=== PATIENT | female | born 1945 | race Two or more races ===

== ENCOUNTER 2024-06-27 11:25 | Outpatient (REF) | payer MEDICARE, OTHER, SELFPAY ==
--- OUTSIDE RECORDS SUMMARY | 2024-06-27 14:41 | XMS_ITS | Clinical Summary ---
Author Organization Patient Business Ser [facility] Address [address] [place] [address] Care Team Providers Care Pediatric Critical Care Nurse Name Role Phone Theodore Newsome MD Primary Care Provider [phone] Allergies Active Allergy Reactions Criticality Noted Date [...] Active Problems Problem Noted Date Diagnosed Date [facility] 05/09/2024 Stage 3a chronic kidney disease [...] physical therapy when she was down in [place] and currently is in physical therapy, feels [...] Patient had MRI lumbar spine 11/07/2021 at [facility] that showed mild multilevel degenerative changes, including [...] occur when she has her chest discomfort. monitoring analyst in the past did not reveal any concerning findings. Her baseline EKG is showing sinus bradycardia with a heart rate of 53 bpm. She states that her palpitations are worse this year when compared to previous. We will update a 48-hour cardiac rn to assess for any significant cardiac arrhythmias. No changes to her medical therapies today. SOB (shortness of breath) 10/10/2021 Overview (12/23/2023): Last Assessment & Plan: Patient continues to report exertional shortness of breath. She does have COPD and recent CAT scan showing emphysema. She will be following with her firer watertender later this week. Superior mesenteric artery stenosis [...] Visit Internal [facility] - [facility] [address] [place] [address] Theodore Newsome MD Primary hypertension (Primary Dx); Stage 3a chronic kidney disease (CMS/HCC); Bilateral leg edema 05/31/2024 Telephone Orthopedic Surgery - [place] [address] [place] [phone] Deepa Clifton NP 05/24/2024 Telephone Pediatrics - [facility] [address] [place] [address] Theodore Newsome MD Med Refill 05/23/2024 1:30 PM EST Office Visit [facility] - [address] [place] [phone] Rohith Raya MD PVC (premature ventricular contraction) (Primary Dx); Primary hypertension; Other chest pain 05/22/2024 Telephone Orthopedic Surgery - [place] [address] [place] [phone] Deepa Clifton NP 05/16/2024 1:41 PM EST - 05/16/2024 11:59 PM EST Hospital Encounter [facility] MRI [address] [place] [phone] Unspecified internal derangement of right knee; Pain and swelling of right knee; Primary osteoarthritis of right knee Discharge Disposition: Home or Self Care 05/10/2024 3:30 PM EST Consult Orthopedic Surgery - [place] [address] [facility] [address] [place] [phone] Deepa Clifton NP Pain and swelling of right knee (Primary Dx); Unspecified internal derangement of right knee; Primary osteoarthritis of right knee; Subchondral insufficiency fracture of condyle of right femur, initial encounter ([facility]) 05/08/2024 Telephone Pediatrics - [facility] [address] [place] [address] Theodore Newsome MD Medication Reaction 05/03/2024 3:30 PM EST Office Visit Unit Operator - [facility] [address] [place] [address] Theodore Newsome MD Follow-up exam (Primary Dx); Precordial pain; Bilateral lower extremity edema 05/02/2024 10:45 AM EST Office Visit Orthopedic Surgery - [place] [address] [place] [phone] Thomas Mark DPM Localized edema (Primary [...] SUBTOTAL THYROIDECTOMY OTHER SURGICAL HISTORY 1979 PROCEDURE: NM TOTAL ABDOMINAL HYSTERECT W/WO RMVL TUBE OVARY; [...] chronic, sta ge III (GFR 30-59 ml/min) ([facility]) DX:Kidney disease, chroni c, stage III (GFR 30-59 ml/min) ([facility]); COMMENT: Patient states is likely related to her chronic naproxen use, no longer takes NSAIDs Osteoporosis DX:Osteoporosis Multiple lung nodules 05/17/2020 DX:Multipl e lung nodules History of pulmonary embolus (PE) 05/08/2021 DX:History of pulmonary embolus (PE); COMMENT: In [place], took Elliquis for 3 months. Chronic gastritis [...] 2:30 PM EDT Office Visit Orthopedic Surgery [place] [address] [phone] Deepa Clifton NP [address] [address] 07/31/2024 10:45 AM EDT Office Visit Orthopedic [address] [address] Thomas Mark DPM [address] [address] 08/02/2024 1:00 PM EDT Office Visit [facility] [address] [place] [address] Theodore Newsome MD [address] [place] [address] 08/23/2024 1:30 PM EDT Ancillary Procedure [facility] - [facility] [address] [phone] 09/04/2024 8:30 AM EDT Ancillary Procedure [facility] - [facility] [address] [place] [address] 10/19/2024 10:00 AM EDT Office Visit Vascular Surgery - [place] [address] [place] [phone] Paulette Santos PA [address] [place] [address] 12/08/2024 3:30 PM EDT Office Visit Internal Medicine - [facility] [address] [place] [address] Theodore Newsome MD [address] [place] [address] 01/24/2025 1:10 PM EDT Office Visit [facility] - [facility] [address] [facility] 102 [place] [address] Falguni Villarreal NP 300 [facility] 154 [place] [phone] Health Maintenance Due Date Last Done Comments [...] GEMUSE QTc 413 ms GEMUSE P Wave [place] 74 degrees GEMUSE R [place] 65 degrees GEMUSE T [place] 82 degrees GEMUSE ECG Interpretation Sinus bradycardia Right atrial enlargement Borderline ECG When compared with ECG of 24-JUN-2023 14:20, No significant change was found Confirmed by MD Elver, Rohith ([id number]) on 05/23/2024 2:29:27 PM GEMUSE [...] edema suggesting a nondisplaced subchondral fracture. A [employer] message has been communicated to the office of DEEPA CLIFTON via the [employer] System on 05/18/2024 1:40 PM, Message ID [id number]. -------- FINAL REPORT -------- Dictated By: Zack Churchill Dictated Date: 05/18/2024 13:31 ET Assigned Physician: Zack Churchill Reviewed and Electronically Signed By: Zack Churchill Signed Date: 05/18/2024 13:41 ET Workstation ID: [id number] Transcribed By: Self Edit Transcribed Date: 05/18/2024 [...] marrow edemasuggesting a nondisplaced subchondral fracture. A [employer] message has been communicated to the office of DEEPA Alfredo the [employer] System on 05/18/2024 1:40 PM,Message ID [id number]. -------- FINAL REPORT -------- Dictated By: Zack Churchill Dictated Date: 05/18/2024 13:31 ET Assigned Physician: Zack Churchill Reviewed and Electronically Signed By: Zack Churchill Signed Date: 05/18/2024 13:41 ET Workstation ID: [id number] Transcribed By: Self Edit Transcribed Date: 05/18/2024 13:31 ET us Deepa Clifton OPERATIONS ADMINISTRATIVE ASSISTANT IMG MRI PROCEDURES Brandi l Result * [...] AM EST Performed at: ??01 - [facility] [address] ??[id number] Ict Trainer: Debora Obrien MD, Phone: ??[phone] us Maria E Jeffries OPERATIONS ADMINISTRATIVE ASSISTANT LAB BLOOD ORDERABLES Final R esult [facility] 1 * (ABNORMAL) Comprehensive metabolic panel (01/31/2024 11:26 AM EST) Sodium 141 133 - 145 mmol/L LAB CHEMISTRY METHOD 01/31/2024 6:56 PM [facility] Potassium 4.9 3.5 - 5.5 mmol/L LAB CHEMISTRY METHOD 01/31/2024 6:56 PM [facility] Chloride 107 96 - 110 mmol/L LAB CHEMISTRY METHOD 01/31/2024 6:56 PM [facility] CO2 27 21 - 32 mmol/L LAB CHEMISTRY METHOD 01/31/2024 6:56 PM [facility] Anion Gap 7 3 - 11 LAB CHEMISTRY METHOD 01/31/2024 6:56 PM [facility] Glucose 102(H) 70 - 100 mg/dL LAB CHEMISTRY METHOD 01/31/2024 6:56 PM [facility] BUN 25 5 - 25 mg/dL LAB CHEMISTRY METHOD 01/31/2024 6:56 PM [facility] Creatinine 1.18(H) 0.50 - 1.10 mg/dL LAB CHEMISTRY METHOD 01/31/2024 6:56 PM [facility] eGFR 48(L) >=60 mL/min/1. 73m2 LAB CHEMISTRY METHOD 01/31/2024 6:56 PM [facility] Comment:Calculation based on the??Chronic Kidney Disease Epidemiology Collaboration (CKD-EPI) equation refit??without adjustment for race. BUN/Creatinine Ratio 21.2 LAB CHEMISTRY METHOD 01/31/2024 6:56 PM [facility] Calcium 10.0 8.5 - 10.5 mg/dL LAB CHEMISTRY METHOD 01/31/2024 6:56 PM [facility] AST (SGOT) 25 10 - 42 unit/L LAB CHEMISTRY METHOD 01/31/2024 6:56 PM [facility] ALT (SGPT) 29 10 - 60 unit/L LAB CHEMISTRY METHOD 01/31/2024 6:56 PM [facility] Alkaline Phosphatase 106 42 - 121 unit/L LAB CHEMISTRY METHOD 01/31/2024 6:56 PM [facility] Total Protein 7.4 6.0 - 8.0 g/dL LAB CHEMISTRY METHOD 01/31/2024 6:56 PM [facility] Albumin 3.8 3.2 - 5.0 g/dL LAB CHEMISTRY METHOD 01/31/2024 6:56 PM [facility] Total Bilirubin 0.3 0.0 - 1.4 mg/dL LAB CHEMISTRY METHOD 01/31/2024 6:56 PM [facility] Blood Venous blood specimen / Unknown Venipuncture / Unknown 01/31/2024 11:26 AM EST 01/31/2024 11:26 AM EST Thomas Mark DP LAB BLOOD ORDERABLES Final Result [facility] [address] [place] [address], * Falls Risk Assessment (10/27/2023) Falls Risk Assessment Abstracted Historical Provider MD HEALTH MAINTENANCE Final Result * Depression Screening (10/27/2023) Depression Screening Abstracted us Historical Provider HEALTH MAINTENANCE Final Result from Last 3 Months or Most Recently Relevant to Health Maintenance Insurance MEDICARE [facility] Advance Directives Documents on File Type Date Recorded Patient Liquor Grinding Mill Operator Expl anation Health Care Decision (hx) 10/01/2023 HE ALTH CARE PROXY Health Care Decision (hx) 10/01/2023 HE ALTH CARE PROXY Health Care Decision (hx) 09/29/2023 HE ALTH CARE PROXY Health Care Decision (hx) 09/29/2023 HE ALTH CARE PROXY Care Teams Pediatric Critical Care Nurse Relationship Specialty Start Date End Date Theodore Newsome MD [address] [facility] [place] [address] PCP - General Internal Medicine 02/08/24
--- OUTSIDE RECORDS SUMMARY | 2024-06-27 14:41 | XMS_ITS | Encounter Summary ---
Author Organization [facility] Address [address] [place] [address] Care Team Providers Care Gas Engine Repairer Name Role Phone Theodore Newsome MD Primary Care Provider [phone] Encounter Details Date Type Department Care Team (Late st Contact Info) Description 05/31/2024 Telephone Orthopedic Surgery - [place] [address] [place] [phone] Deepa Lakhani NP [address] [address] Social History Tobacco Use Types Packs/Day Years [...] 2:30 PM EDT Office Visit Orthopedic Surgery [place] [address] [address] Deepa Lakhani NP [address] [address] 07/31/2024 10:45 AM EDT Office Visit Orthopedic Surgery [place] [address] [address] Thomas Mark DPM [address] [address] 08/02/2024 1:00 PM EDT Office Visit Internal Medicine - [address] [address] Theodore Newsome MD 305 [place] [address] 08/23/2024 1:30 PM EDT Ancillary Procedure [facility] [address] [address] 09/04/2024 8:30 AM EDT Ancillary Procedure [facility]iology [facility] [address] [address] 10/19/2024 10:00 AM EDT Office Visit Vascular Surgery - [place] [address] [place] [address] Paulette Santos PA 300 [facility] 210 [place] [address] 12/08/2024 3:30 PM EDT Office Visit Internal Medicine - [facility] 305 [place] [address] Theodore Newsome MD 305 [place] [address] 01/24/2025 1:10 PM EDT Office Visit [facility] - [facility] 102 300 [facility] 102 [place] [phone] Falguni Villarreal NP 300 [facility] 154 [place] [phone] documented as of this encounter Visit Diagnoses Not on filedocumented in this encounter Additional Health Concerns Assessment Noted Time PHQ-9 Depression Total Score: 11 024 11:00 AM EST documented as of this encounter Care Teams Gas Engine Repairer Relationship Specialty Start Date End Date Theodore Newsome MD 305 [place] [address] PCP - General Internal Medicine 02/08/24 documented as of this encounter
[2024-06-27 18:46] LABS: Creatinine Urine 260.51 mg/dL; Protein/Creatinine Ratio, Ur 0.09 (<0.2); Total Protein Urine Random 23 mg/dL (<12)
[2024-06-27 19:41] LABS: Parathyroid Hormone Intact 63.1 pg/mL (8.7-77.1)
[2024-06-27 19:56] LABS: Anion Gap 14 (12-20); Blood Urea Nitrogen 21 mg/dL (9-16); Calcium 9.5 mg/dL (8.4-10.2); Carbon Dioxide 25 mmol/L (22-29); Chloride 107 mmol/L (96-108); Estimated Glomerular Filt Rate 52; Phosphorus 3.6 mg/dL (2.7-4.5); Potassium 4.8 mmol/L (3.3-5.1); Sodium 141 mmol/L (135-145)
[2024-06-30 16:44] LABS: IgA 424 mg/dL (70-320); IgG 1035 mg/dL (600-1540); IgM 84 mg/dL (50-300)
== END 2024-06-27 11:26 | disposition home or self-care (01) ==
LOC: HO.HKASLDS 11:25
PROVIDERS: PCP Internal Medicine Hematology & Oncology; Visit Provider Internal Medicine Nephrology
DX: I12.9 Hypertensive chronic kidney disease with stage 1 through stage 4 chronic kidney disease, or unspecified chronic kidney disease (principal); N18.31 Chronic kidney disease, stage 3a
CPT/HCPCS: 36415; 80051; 82306; 82310; 82565; 82570; 82784; 83970; 84100; 84156; 84520; 86334; 99202

== ENCOUNTER 2024-06-27 11:25 | Outpatient (AMB) | payer MEDICARE, OTHER, SELFPAY ==
--- NOTE | 2024-06-27 11:44 | HO.NEPHOV_ITS ---
Vital Signs 06/27/24 11:49 Height 5 ft 1 in Weight 161 lb 8 oz BMI 30.5 BP 128/70 Blood Pressure Location Lt brachial Position Sitting Pulse 47 L Pulse Source Pulse Oximeter Pulse Oximetry (%) 97 Oxygen Delivery Method Room Air Intake Visit Reasons: [facility] Occupational Therapist Assistant Required: No Accompanied by: Self / Same As Patient Allergies cephalexin Allergy (Verified 06/27/24 11:48) Unknown fluorouracil Allergy (Verified 06/27/24 11:48) Unknown lisinopril Allergy (Verified 06/27/24 11:48) Unknown moxifloxacin Allergy (Verified 06/27/24 11:48) Unknown shellfish derived Allergy (Verified 06/27/24 11:48) Unknown Sulfa (Sulfonamide Antibiotics) Allergy (Verified 06/27/24 11:48) Unknown sulfacetamide Allergy (Verified 06/27/24 11:48) Unknown HPI Comments Details: I had the pleasure of seeing Martell in consultation and transfer of her renal care to me. 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 She has a longstanding hypertension and had been on lisinopril in the past which has been discontinued when she had some dizziness while taking the medication. She is currently on amlodipine which is keeping her blood pressure at goal. She has history of renal calculi. She is also taking hydrochlorothiazide for edema which is helping to keep her blood pressure at goal. She has not had any renal calculi ever since she has been on hydrochlorothiazide. She has history of A1c going up to 7 which had improved to upper 6. She feels tired. She denies chest pain, shortness of breath, nausea, vomiting, diarrhea, paroxysmal nocturnal dyspnea, orthopnea, dysuria, microscopic hematuria, sensorineural deafness. She has history of aortic aneurysm and is going to see Dr. Doe in [facility]. She does not take nonsteroidal anti-inflammatories. [facility] Medical History (Updated 06/27/24 @ 22:35 by Karl Blanco MD) Hypercholesterolemia Hypertension Hypothyroidism Other secondary pulmonary hypertension Surgical History (Updated 06/27/24 @ 11:47 by Mari Dai MA) History of cataract surgery H/O partial thyroidectomy Hx of cholecystectomy H/O: hysterectomy Family History Mother Diabetes Hypertension Heart disease Social History (Updated 06/27/24 @ 11:45 by Mari Dai MA) Alcohol intake: never Patient Tobacco Use Status: Never used Tobacco Review of Systems Const All systems reviewed & are unremarkable except as noted in HPI and below Physical Exam Vital Signs: Last Vital Signs Pulse 47 L 06/27/24 11:49 BP 128/70 06/27/24 11:49 Pulse Ox 97 06/27/24 11:49 Oxygen Delivery Method Room Air 06/27/24 11:49 BMI result Body Mass Index 30.5 Const General: comfortable and no acute distress Orientation/consciousness: patient oriented x3 HEENT Head: Yes normocephalic Mouth: Normal oral and palatal mucosa present Eyes EOM: EOMs intact bilaterally Neck Neck: Yes supple Resp Auscultation: clear to auscultation bilaterally Cardio Jugular venous distension: no JVD Rate: regular rate GI Palpation (GI): Soft to palpation Auscultation: normal bowel sounds General: Yes no CVA tenderness Back/Spine/Pelvis Back: no CVA tenderness Skin General skin exam: no rashes or lesions noted Neuro General: patient oriented x3 and moves all extremities Extrem General: Yes no pedal edema Results Reviewed Nephrology Results: Sodium 141 mmol/L (135-145) 06/27/24 Potassium 4.8 mmol/L (3.3-5.1) 06/27/24 Chloride 107 mmol/L (96-108) 06/27/24 Carbon Dioxide 25 mmol/L (22-29) 06/27/24 BUN 21 mg/dL (9-16) H 06/27/24 Creatinine 1.03 mg/dL (0.5-1.4) 06/27/24 Calcium 9.5 mg/dL (8.4-10.2) 06/27/24 Phosphorus 3.6 mg/dL (2.7-4.5) 06/27/24 PTH Intact 63.1 pg/mL (8.7-77.1) 06/27/24 Urine Creatinine 260.51 mg/dL 06/27/24 Protein/Creatinin Ratio 0.09 (<0.2) 06/27/24 Assessment & Plan Assessment & Plan (1) Hypertension: Code(s): I10 - Essential (primary) hypertension Category: Medical Qualifiers: Hypertension type: unspecified Qualified Code(s): I10 - Essential (primary) hypertension (2) CKD stage 3a, GFR 45-59 ml/min: Code(s): N18.31 - Chronic kidney disease, stage 3a Category: Medical Plan 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 She has history of aortic aneurysm. She has had issues with CANDIDO inhibitor. She has no renal calculi ever since she has been on hydrochlorothiazide. She has edema from amlodipine. Her renal functions are currently stable. I have ordered blood work, urine studies as well as imaging studies. I plan to initiate her on low- dose CANDIDO inhibitor with time and cut back on her calcium channel anni. She should maintain good hydration and avoid nonsteroidal anti-inflammatories. All these have been explained in detail. Answered all questions. Follow-up appointment given Orders: Orders Calcium Today I10 - Essential (primary) hypertension, N18.31 - Chronic kidney disease, stage 3a Creatinine Today I10 - Essential (primary) hypertension, N18.31 - Chronic kidney disease, stage 3a Vitamin D 25-OH Total Today I10 - Essential (primary) hypertension, N18.31 - Chronic kidney disease, stage 3a Phosphorus Today I10 - Essential (primary) hypertension, N18.31 - Chronic kidney disease, stage 3a Protein Creatinine Ratio, Ur Today I10 - Essential (primary) hypertension, N18.31 - Chronic kidney disease, stage 3a Immunofixation Pnl, Serum Today I10 - Essential (primary) hypertension, N18.31 - Chronic kidney disease, stage 3a US renal BI 3 Weeks I10 - Essential (primary) hypertension, N18.31 - Chronic kidney disease, stage 3a US renal doppler 3 Weeks I10 - Essential (primary) hypertension, N18.31 - Chronic kidney disease, stage 3a Electrolytes Today I10 - Essential (primary) hypertension, N18.31 - Chronic kidney disease, stage 3a Blood Urea Nitrogen Today I10 - Essential (primary) hypertension, N18.31 - Chronic kidney disease, stage 3a Parathyroid Hormone Intact Today I10 - Essential (primary) hypertension, N18.31 - Chronic kidney disease, stage 3a Coding Level of Care Code New Pt Level 4 (32001) Diagnoses Hypertension, unspecified type I10 Hypertension type: unspecified CKD stage 3a, GFR 45-59 ml/min N18.31
[2024-06-27 11:49] VITALS: BP 128/70; PULSE 47; O2SAT 97; BMI 30.5
--- OUTSIDE RECORDS SUMMARY | 2024-06-27 13:53 | XMS_ITS | Encounter Summary ---
Author Organization [facility] Address [address] [place] [address] Care Team Providers Care Clinical Safety Manager Name Role Phone Theodore Newsome MD Primary Care Provider [phone] Encounter Details Date Type Department Care Team (Late st Contact Info) Description 05/31/2024 Telephone Orthopedic Surgery - [place] [address] [place] [id number] Deepa Lakhani NP [address] [address] Social History Tobacco Use Types Packs/Day Years Used Date Smoking Tobacco: Never Smokeless Tobacco: Never Alcohol Use Standard Drinks/Week Comments Never 0 (1 standard drink = 0.6 oz pur e alcohol) Comments No Sex and Gender Information Value Date Recorded Sex Assigned at Not on file Legal Sex Female 11:42 AM EST Gender Identity Female 02/09/2022 1:05 PM EST Sexual Orientation Straight 02/09/2022 1: 05 PM EST documented as of this encounter Progress Notes * Vero Grubbs MA - 05/31/2024 10:35 AM EST The additional information has been faxed to jonah * Laura Ayers - 05/31/2024 10:22 AM EST Patient is calling back in regarding previous message. She states she's in pain and needs to get the walker karen. Please advise. Thanks documented in this encounter Plan of Treatment Upcoming Encounters Date Type Department Care Team (Late st Contact Info) Description 06/29/2024 2:30 PM EDT Office Visit Orthopedic Surgery [place] [address] [phone] Deepa Lakhani NP [address] [address] 07/31/2024 10:45 AM EDT Office Visit Orthopedic Surgery [place] [address] [phone] Thomas Mark DPM [address] [address] 08/02/2024 1:00 PM EDT Office Visit Internal Medicine - [address] [phone] Theodore Newsome MD [address] [place] [address] 08/23/2024 1:30 PM EDT Ancillary Procedure [facility] Cardiology [facility] [address] [address] 09/04/2024 8:30 AM EDT Ancillary Procedure [facility] Cardiology [facility] [address] [address] 10/19/2024 10:00 AM EDT Office Visit Vascular Surgery - [place] [address] [place] [address] Paulette Santos PA 300 [facility] [address] [place] [address] 12/08/2024 3:30 PM EDT Office Visit Internal Medicine - [facility] [address] [place] [address] Theodore Newsome MD [address] [place] [address] 01/24/2025 1:10 PM EDT Office Visit [facility] - [facility] 102 300 [facility] 102 [place] [phone] Falguni Villarreal NP 300 [facility] 154 [place] [phone] documented as of this encounter Visit Diagnoses Not on filedocumented in this encounter Additional Health Concerns Assessment Noted Time PHQ-9 Depression Total Score: 11 024 11:00 AM EST documented as of this encounter Care Teams Clinical Safety Manager Relationship Specialty Start Date End Date Theodore Newsome MD [address] [place] [address] PCP - General Internal Medicine 02/08/24 documented as of this encounter
--- OUTSIDE RECORDS SUMMARY | 2024-06-27 13:53 | XMS_ITS ---
Author Name [facility] Organization Unknown History of Medication Use Medication Directions Dispensed Refills Start Date End Date Stat us blood sugar diagnostic (FreeStyle Lite Strips) test strip Use to check BS daily 05/28/2023 active escitalopram (LEXAPRO) 10 mg tablet Take 1 tablet (10 mg total) by mouth 1 (one) time each day. 03/02/2024 active budesonide-formoteroL (SYMBICORT) 160-4.5 mcg/actuation inhaler Inhale 2 puffs by mouth. active tqotqdohoh-wmtnrxlc-gfgtf terol (Breztri Aerosphere) 160-9-4.8 mcg/actuation HFA aerosol inhaler inhaler Inhale 2 Puffs into the lungs 2 times daily. 10/22/2023 active hydroCHLOROthiazide 12.5 mg tablet Take 1 tablet (12.5 mg total) by mouth 1 (one) time each day. 05/03/2024 active hydrocortisone 1 % topical cream Apply twice daily to rectum as needed. 06/22/2023 active montelukast (SINGULAIR) 10 mg tablet Take 1 tablet (10 mg total) by mouth at bedtime. 09/19/2020 active diclofenac (VOLTAREN) 1 % topical gel Apply 1 g topically 3 (three) times a day. 10/01/2023 active erythromycin 5 mg/gram (0.5 %) ophthalmic ointment Apply 1cm ribbon in right eye up to 6x/ day x 10 days 12/13/2023 active aspirin 81 mg EC tablet Take 1 tablet (81 mg total) by mouth 1 (one) time each day. 08/04/2022 active levothyroxine (SYNTHROID, LEVOTHROID) 75 mcg tablet TAKE 1 TABLET BY MOUTH EVERY DAY 02/18/2024 active estradioL (ESTRACE) 0.01 % (0.1 mg/gram) vaginal cream Insert 1 g into the vagina 2 (two) times a week. 02/17/2023 active nitroglycerin (NITROSTAT) 0.[address] 1 tablet (0.4 mg total) under the tongue. every 5 minutes as needed for Chest pain. 05/03/2023 active albuterol HFA (PROAIR HFA ; PROVENTIL HFA ; VENTOLIN HFA) 90 mcg/actuation inhaler Inhale 2 Puffs into the lungs 4 times daily as needed for Wheezing or Shortness of Breath. 10/22/2023 active pantoprazole (PROTONIX) 40 mg EC tablet Take 1 tablet (40 mg total) by mouth 2 (two) times a day. 10/22/2023 active amLODIPine (NORVASC) 5 mg tablet Take 1 tablet (5 mg total) by mouth. active Problems Problem Status Onset Date Problem Type Date of Resolution Source Other pulmonary embolism without acute cor pulmonale active 2020-06-25 ProblemAct [facility] Aortic calcification active 2021-05-08 ProblemAct [facility] Irritable bowel syndrome active 2018-10-18 ProblemAct [facility] Superior mesenteric artery stenosis active 2021-10-10 ProblemAct [facility] Colon polyp active 2021-05-08 ProblemAct [facility] Palpitations active 2021-10-15 ProblemAct [facility] Lumbar spondylosis active 2021-11-26 ProblemAct [facility] Stage 3a chronic kidney disease active 2023-12-23 ProblemAct [facility] 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 ProblemAct [facility] Arthritis active 2018-10-18 ProblemAct [facility] Unspecified chronic gastritis with bleeding active 2018-03-08 ProblemAct [facility] Suprapubic pain active 2017-01-[address] [facility] Moderate persistent asthma, uncomplicated active 2020-05-17 ProblemAct [facility] Difficulty walking active 2020-07-18 ProblemAct [facility] Vaginal foreign body active 2017-07-02 ProblemAct [facility] Snoring active 2020-05-17 ProblemAct [facility] Hypertension active 2018-10-18 ProblemAct [facility] 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 active 2016-09-08 ProblemAct [facility] Prediabetes active 2021-05-08 ProblemAct [facility] 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 active 2020-07-18 ProblemAct [facility] Lumbago active 2024-05-09 ProblemAct [facility] Hypothyroidism active 2018-10-18 ProblemAct [facility] SOB (shortness of breath) active 2021-10-10 ProblemAct [facility] Abdominal pain active 2018-10-18 ProblemAct [facility] Depression active 2021-05-08 ProblemAct [facility] Thyroid nodule active 2018-02-21 ProblemAct [facility] Dysthymic disorder active 1979-03-29 ProblemAct [facility] Epigastric pain active 2016-11-[address] [facility] GERD (gastroesophageal reflux disease) active 2021-05-08 ProblemAct [facility] Other secondary pulmonary hypertension active 2020-06-25 ProblemAct [facility] Obesity active 1996-03-29 ProblemAct [facility] Multiple lung nodules active 2020-05-17 ProblemAct [facility] CKD (chronic kidney disease) active 2021-05-08 ProblemAct [facility] Ptosis of right eyebrow active 2019-02-16 ProblemAct [facility] Chronic fatigue active 2020-06-[address] [facility] Disease due to severe acute respiratory syndrome coronavirus 2 (SARS-CoV-2) active 2023-12-02 ProblemAct C [facility]THS[facility] Headache active 2016-11-11 ProblemAct [facility] Right sided sciatica active 2017-06-05 ProblemAct [facility] Hyperlipidemia active 2021-10-15 ProblemAct [facility] Pure hypercholesterolemia active 2018-10-18 ProblemAct [facility] COPD (chronic obstructive pulmonary disease) active 2021-05-08 ProblemAct [facility] N Restrictive lung disease active 2020-08-22 ProblemAct [facility] Multiple premature ventricular complexes active 2023-12-07 ProblemAct [facility] Chest pain active 2005-04-11 ProblemAct [facility] Immunizations Vaccine Date Source Lot Number Status Pneumococcal, Unspecified 10/23/2022 [facility] [id number] completed Pneumococcal polysaccharide 23 valent (Pneumovax 23) 2yo and older 03/08/2014 [facility] [id number] com pleted Influenza Quadravalent, 0.5m l (Fluzone High-dose) 65yo and older 02/13/2022 [facility]_S[facility] comple levar Pneumococcal polysaccharide 23 valent (Pneumovax 23) 2yo and older 04/19/2012 [facility]_SUHASFRAN com pleted Influenza trivalent, with pr eservative (Fluzone; Afluria) 6mo and older 05/12/2016 [facility]_S[facility]AN [id number] completed Tdap Tetanus diptheria acell ular pertussis (Boostrix; Adacel) 7yo and older 08/27/2023 [facility] [id number] completed Influenza trivalent, with pr eservative (Fluzone; Afluria) 6mo and older 12/21/2017 [facility]_SFRNEGRA [id number] completed Pneumococcal conjugate 20 va lent (Prevnar 20, PCV 20) 2mo and older 10/23/2022 [facility] [id number] comple levar Influenza, Unspecified 02/03/2000 [facility] co mpleted Influenza Whole 03/01/2001 [facility] completed Td, Unspecified 08/27/1993 [facility] completed Influenza Split 03/15/2019 [facility] completed Influenza trivalent, with pr eservative (Fluzone; Afluria) 6mo and older 01/10/2017 [facility]SFR[facility] [id number] completed Influenza Quadravalent, 0.5m l (Fluad) 65yo and older 03/18/2021 [facility] completed Influenza, Unspecified 01/30/1999 [facility] co mpleted Influenza trivalent, 0.5mL ( Fluzone High-dose) 65yo and older 01/04/2020 [facility] [id number] comple levar Influenza trivalent, 0.5mL ( Fluad) 65yo and older 11/30/2023 [facility] [id number] completed Influenza trivalent, 0.5mL ( Fluad) 65yo and older 02/25/2023 [facility]_GRANT [id number] completed Zoster Live 06/09/2016 [facility]SUHAGR[facility] [id number] completed Influenza trivalent, with pr eservative (Fluzone; Afluria) 6mo and older 04/14/2005 [facility] UNK completed Influenza, Unspecified 12/31/2012 CTKADEEM co mpleted Influenza, Unspecified 04/12/2015 [facility]KADE[facility] [id number] co mpleted
--- OUTSIDE RECORDS SUMMARY | 2024-06-27 13:54 | XMS_ITS | Clinical Summary ---
Author Organization Patient Business Ser [facility] [place] [address] [place] [address] Care Team Providers Care Bilingual Executive Assistant Name Role Phone Theodore Newsome MD Primary Care Provider Allergies Active Allergy Reactions Criticality Noted Date Comments Cephalexin GI intolerance,Other 07/25/2019 Other reaction(s): GI intolerance Duloxetine Other 06/18/2023 Other Reaction(s): Chest tightness, Numbness, tingling or swelling of the lips, tongue or mouth Withdrawal s/x since stopping duloxetine abruptly Fluorouracil Anaphylaxis High 05/28/2020 Patient mouth and tongue, and eyes swollen. Moxifloxacin Rash High 07/06/2016 Other reaction(s): Rash Sertraline Hcl Diarrhea 11/08/2023 Shellfish Containing Products Anaphylaxis,Rash High 07/06/2016 Shrimp 05/01/2021 Sulfa (Sulfonamide Antibiotics) Hives,Rash Medium 07/06/2016 Other reaction(s): Low blood pressure (disorder) Other reaction(s): Hives, Rash Other reaction(s): Low blood pressure (disorder) Sulfacetamide Medium 07/06/2016 Rash/Dermatitis Medications erythromycin 5 mg/gram (0.5 %) ophthalmic ointment Apply 1cm ribbon in right eye up to 6x/ day x 10 days 4 Active pantoprazole (PROTONIX) 40 mg EC tablet Take 1 tablet (40 mg total) by mouth 2 (two) times a day. 4 Active albuterol HFA (PROAIR HFA ; PROVENTIL HFA ; VENTOLIN HFA) 90 mcg/actuation inhaler Inhale 2 Puffs into the lungs 4 times daily as needed for Wheezing or Shortness of Breath. 4 Active budesonide-form oteroL (SYMBICORT) 160-4.5 mcg/actuation inhaler Inhale 2 puffs by mouth. Active diclofenac (VOLTAREN) 1 % topical gel Apply 1 g topically 3 (three) times a day. 4 Active montelukast (SINGULAIR) 10 mg tablet Take 1 tablet (10 mg total) by mouth at bedtime. 1 Active hydrocortisone 1 % topical cream Apply twice daily to rectum as needed. 4 Active nitroglycerin (NITROSTAT) 0.[address] 1 tablet (0.4 mg total) under the tongue. every 5 minutes as needed for Chest pain. 4 Active estradioL (ESTRACE) 0.01 % (0.1 mg/gram) vaginal cream Insert 1 g into the vagina 2 (two) times a week. 3 Active aspirin 81 mg EC tablet Take 1 tablet (81 mg total) by mouth 1 (one) time each day. 3 Active budesonide-glyc opyr-formoterol (Breztri Aerosphere) 160-9-4.8 mcg/actuation HFA aerosol inhaler inhaler Inhale 2 Puffs into the lungs 2 times daily. 4 Active blood sugar diagnostic (FreeStyle Lite Strips) test strip Use to check BS daily 4 Active FREESTYLE LANCETS MISC Use to check BS daily 4 Active levothyroxine (SYNTHROID, LEVOTHROID) 75 mcg tabletIndicatio ns:Hypothyroidi sm, unspecified TAKE 1 TABLET BY MOUTH EVERY DAY 90 tablet 1 4 Active escitalopram (LEXAPRO) 10 mg tablet Take 1 tablet (10 mg total) by mouth 1 (one) time each day. 90 tablet 1 4 Active amLODIPine (NORVASC) 10 mg tablet Take 1 tablet (10 mg total) by mouth 1 (one) time each day. 90 tablet 1 5 Active metoprolol succinate (Toprol XL) 25 mg 24 hr tablet Take 1 tablet (25 mg total) by mouth 1 (one) time each day. Do not crush or chew. 90 each 3 5 06/28/19 26 Active hydroCHLOROthia zide 12.5 mg tablet Take 1 tablet (12.5 mg total) by mouth 1 (one) time each day. 30 each 5 06/08/19 25 Discontinu ed(Discont inued by another clinician) metoprolol succinate (Toprol XL) 25 mg 24 hr tablet Take 1 tablet (25 mg total) by mouth 1 (one) time each day. Do not crush or chew. 90 each 3 5 06/25/19 25 Discontinu ed(Reorder ) Active Problems Problem Noted Date Diagnosed Date [facility] 05/09/2024 Stage 3a chronic kidney disease 12/23/2023 Overview (12/23/2023): Per chart review meets GFR criteria Multiple premature ventricular complexes 024 Overview (12/23/2023): Last Assessment & Plan: This 78-year-old female with an atypical chest pain syndrome and unexplained dyspnea on exertion has frequent PVCs with a 7% burden on her Holter monitor. Symptomatically, she has done well with metoprolol and I do not see a strong need to treat these either with antiarrhythmic medications or catheter ablation. The monitor did show 2 different morphologies and neither were from the outflow tract which would suggest a somewhat lower likelihood of effectiveness of ablation. I would generally use flecainide for PVC suppression if needed but given her symptoms are only modest and I doubt highly that these are contributing to her chest pain or dyspnea leading me to not strongly recommend treatment of the PVCs. Continue metoprolol. Disease due to severe acute respiratory syndrome coronavirus 2 (SARS-CoV-2) 12/02/2023 Overview (12/23/2023): Problem added by Discern Expert Lumbar spondylosis 11/26/2021 Overview (12/23/2023): Last Assessment & Plan: Patient describes chronic low back pain, states last year was her worst pain, states she could barely walk. She has been in physical therapy when she was down in [place] and currently is in physical therapy, feels it helps her back not be as stiff . Her main back pain happens when she is sitting driving, doing housework like cleaning or gardening. At times she will have pain in the hips, groin, anterior thigh and also has pain radiating down the posterior legs from the buttock down the thigh into the calf. She has not had any diagnosis of hip arthritis. When her pain is severe with activity it gets up to an 8-9/10. She has not tried cortisone injections or acupuncture. She did just have a cortisone injection in her left thumb for OA. Patient had MRI lumbar spine 11/07/2021 at [facility] that showed mild multilevel degenerative changes, including grade 1 L5-S1 retrolisthesis, small annular tear with broad-based disc bulging, moderate left, mild right neuroforaminal narrowing. I reviewed the MRI images in detail with the patient on the computer. Ms. Brar would like to continue with trying conservative treatment options for her low back pain, we talked about acupuncture and AMANDA/possible hip bursa, SI joint injections. She would like to start with acupuncture, a couple names provided, she will call and see if they take her insurance. We also talked about continuing physical therapy since it is helping her, and continuing to do exercises/stretches at home after completion. She has our office phone number, I asked her to call to update me after trying acupuncture, see if she needs office follow-up and referral for injections if she is not improving. I did not order hip x-rays today, if she has persistent hip pain I can also check for any hip OA contributing to her pain. All questions answered on today's visit. Hyperlipidemia 10/15/2021 Overview (12/23/2023): Last Assessment & Plan: Patient's last LDL cholesterol 125. Continue with low-fat diet. Given her coronary calcification identified in the past and would be best if her LDL cholesterol was below 70. She was on statin in the past and developed GI discomfort. We will update another lipid panel this year. Palpitations 10/15/2021 Overview (12/23/2023): Last Assessment & Plan: Patient continues to report palpitations which occur when she has her chest discomfort. potline monitor in the past did not reveal any concerning findings. Her baseline EKG is showing sinus bradycardia with a heart rate of 53 bpm. She states that her palpitations are worse this year when compared to previous. We will update a 48-hour potline monitor to assess for any significant cardiac arrhythmias. No changes to her medical therapies today. SOB (shortness of breath) 10/10/2021 Overview (12/23/2023): Last Assessment & Plan: Patient continues to report exertional shortness of breath. She does have COPD and recent CAT scan showing emphysema. 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 Superior mesenteric artery stenosis 10/10/2021 Aortic calcification 05/08/2021 Overview (12/23/2023): Xray at ER 2021 Last Assessment & Plan: Patient continues to follow with vascular. She has known abdominal aortic stenosis. Assessment & Plan (05/23/2024 2:17 PM EST): Orders: ECG 12 lead CKD (chronic kidney disease) 05/08/2021 Colon polyp 05/08/2021 COPD (chronic obstructive pulmonary disease) 12/2021 Depression 05/08/2021 GERD (gastroesophageal reflux disease) Prediabetes 05/08/2021 Restrictive lung disease 08/22/2020 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 07/18/2020 Difficulty walking 07/18/2020 Chronic fatigue 06/25/2020 Other pulmonary embolism without acute cor pulmo nale 06/25/2020 Other secondary pulmonary hypertension Moderate persistent asthma, uncomplicated 2020 Multiple lung nodules 05/17/2020 Snoring 05/17/2020 Ptosis of right eyebrow 02/16/2019 Arthritis 10/18/2018 Abdominal pain 10/18/2018 Chronic obstructive pulmonary disease 10/18/2018 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 Continue with her medical therapies as prescribed. She will continue with lisinopril, metoprolol and amlodipine as outlined in detailed above. Assessment & Plan (05/23/2024 2:29 PM EST): Hypothyroidism 10/18/2018 Irritable bowel syndrome 10/18/2018 Unspecified chronic gastritis with bleeding 02/26 Overview (12/23/2023): 02/01/2017 An EGD was performed showing an irregular squamocolumnar junction mucosal changes of antral gastritis were noted. 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 She does have esophageal disease and that may be the etiology or this could be microvascular angina. I did suggest she might come off the lisinopril and try the amlodipine for 2 to 3 weeks to see if there is any impact. If his microvascular angina or it might be helpful. Otherwise, I would go back to lisinopril given she does have some mild renal dysfunction. She has a CTA coming up and I will leave the management of her chest pain to her primary cardiology team. Assessment & Plan (05/23/2024 2:29 PM EST): Obesity 03/29/1996 Dysthymic disorder 03/29/1979 Encounters Date Type Department Care Team Description 06/07/2024 2:45 PM EDT Office Visit Internal Medicine - [facility] [address] [place] [phone] Theodore Newsome MD Primary hypertension (Primary Dx); Stage 3a chronic kidney disease (CMS/HCC); Bilateral leg edema 05/31/2024 Telephone Orthopedic Surgery - [place] [address] [place] [phone] Deepa Clifton NP 05/24/2024 Telephone Pediatrics - [facility] [address] [place] [phone] Theodore Newsome MD Med Refill 05/23/2024 1:30 PM EST Office Visit [facility] - [address] [place] [phone] Rohith Raay MD PVC (premature ventricular contraction) (Primary Dx); Primary hypertension; Other chest pain 05/22/2024 Telephone Orthopedic Surgery - [place] [address] [place] [phone] Deepa Clifton NP 05/16/2024 1:41 PM EST - 05/16/2024 11:59 PM EST Hospital Encounter [facility] MRI [address] [place] [phone] Unspecified internal derangement of right knee; Pain and swelling of right knee; Primary osteoarthritis of right knee Discharge Disposition: Home or Self Care 05/10/2024 3:30 PM EST Consult Orthopedic Surgery - [place] [address] [facility] [address] [place] [phone] Deepa Clifton NP Pain and swelling of right knee (Primary Dx); Unspecified internal derangement of right knee; Primary osteoarthritis of right knee; Subchondral insufficiency fracture of condyle of right femur, initial encounter ([facility]) 05/08/2024 Telephone Pediatrics - [place] [address] [place] [address] Theodore Newsome MD Medication Reaction 05/03/2024 3:30 PM EST Office Visit [facility] [place] [address] [place] [address] Theodore Newsome MD Follow-up exam (Primary Dx); Precordial pain; Bilateral lower extremity edema 05/02/2024 10:45 AM EST Office Visit Orthopedic Surgery - [place] [address] [place] [phone] Thomas Mark DPM Localized edema (Primary Dx); Pain in toes of both feet; Dermatophytosis, nail from Last 3 Months Immunizations Name Administration Dates Next Due Influenza Quadravalent, 0.5m l (Fluad) 65yo and older 03/18/2021 Influenza Quadravalent, 0.5m l (Fluzone High-dose) 65yo and older 02/13/2022 Influenza Split 03/15/2019 Influenza Whole 03/01/2001 Influenza trivalent, 0.5mL ( Fluad) 65yo and older 11/30/2023,02/25/2023 Influenza trivalent, 0.5mL ( Fluzone High-dose) 65yo and older 01/04/2020 Influenza trivalent, with pr eservative (Fluzone; Afluria) 6mo and older 12/21/2017,01/10/2017,05/12/2016,04/14 Influenza, Unspecified 04/12/2015,2012,02/03/2000,01/30 Pneumococcal conjugate 20 va lent (Prevnar 20, PCV 20) 2mo and older 10/23/2022 Pneumococcal polysaccharide 23 valent (Pneumovax 23) 2yo and older 03/08/2014,04/19/2012 Pneumococcal, Unspecified 10/23/2022 Td, Unspecified 08/27/1993 Tdap Tetanus diptheria acell ular pertussis (Boostrix; Adacel) 7yo and older 08/27/2023 Zoster Live 06/09/2016 Surgical History Surgery Date Site/Laterality Comments CHOLECYSTECTOMY 2014 PROCEDURE: LAPAROSCOPY, CHOLECYSTECTOMY OTHER SURGICAL HISTORY 2017 PROCEDURE: HISTORICAL SUBTOTAL THYROIDECTOMY OTHER SURGICAL HISTORY 1979 PROCEDURE: MS TOTAL ABDOMINAL HYSTERECT W/WO RMVL TUBE OVARY; COMMENT: USO BLADDER SURGERY PROCEDURE: HISTORICAL BLADDER SURGERY; COMMENT: had mesh placed in 2013 TONSILLECTOMY PROCEDURE: HISTORICAL TONSILLECTOMY OTHER SURGICAL HISTORY PROCEDURE: HISTORICAL CA SQUAMOUS CELL; COMMENT: Squamous cell lesions removed from face, nose, bilateral arms starting , most recently 2019 OTHER SURGICAL HISTORY PROCEDURE: HISTORICAL ADNEXAL SURGERY; COMMENT: removal of remaining ovary BLADDER SURGERY 2016 PROCEDURE: HISTORICAL BLADDER SURGERY; COMMENT: mesh removal BLADDER SURGERY 2017 PROCEDURE: HISTORICAL BLADDER SURGERY; COMMENT: bladder reconstruction /caruncle removal Medical History Medical History Date Comments Mild intermittent asthma, uncomplicated DX:Mild intermittent asthma, uncomplicated Essential (primary) hypertension DX:Essential (primary) hypertension GERD (gastroesophageal reflu x disease) DX:GERD (gastroesophageal re flux disease) Depression with anxiety DX:Depre ssion with anxiety Hypothyroidism DX:Hypothyroidis m Kidney disease, chronic, sta ge III (GFR 30-59 ml/min) ([facility]/HCC) DX:Kidney disease, chroni c, stage III (GFR 30-59 ml/min) ([facility]); COMMENT: Patient states is likely related to her chronic naproxen use, no longer takes NSAIDs Osteoporosis DX:Osteoporosis Multiple lung nodules 05/17/2020 DX:Multipl e lung nodules History of pulmonary embolus (PE) 05/08/2021 DX:History of pulmonary embolus (PE); COMMENT: In [place], took Elliquis for 3 months. Chronic gastritis with bleeding 03/08/2018 DX:Chronic gastritis with bleeding; COMMENT: 02/01/2017 An EGD was performed showing an irregular squamocolumnar junction mucosal changes of antral gastritis were noted. Family History Medical History Relation Name Comments Colon cancer Father ? Diabetes Mother Hypertension Mother Relation Name Status Comments Father Mother Alive Social History Tobacco Use Types Packs/Day Years Used Date Smoking Tobacco: Never Smokeless Tobacco: Never Tobacco Cessation:Counseling Given: Not Answered Alcohol Use Standard Drinks/Week Comments Never 0 (1 standard drink = 0.6 oz pur e alcohol) Comments No Sex and Gender Information Value Date Recorded Sex Assigned at Not on file Legal Sex Female 11:42 AM EST Gender Identity Female 02/09/2022 1:05 PM EST Sexual Orientation Straight 02/09/2022 1: 05 PM EST Obstetrics History Last Filed Vital Signs Vital Sign Reading Time Taken Comments Blood Pressure 130/58 06/07/2024 2:48 PM EDT Pulse 60 06/07/2024 2:48 PM EDT Temperature - - Respiratory Rate - - Oxygen Saturation 97% 05/23/2024 1:41 PM EST Inhaled Oxygen Concentration - - Weight 73.7 kg (162 lb 9 oz) 06/07/2024 2:48 PM EDT Height 154.9 cm (5' 1 ) 05/23/2024 1:41 PM EST Body Mass Index 30.72 05/23/2024 1:41 PM EST Plan of Treatment Upcoming Encounters Date Type Department Care Team (Late st Contact Info) Description 06/29/2024 2:30 PM EDT Office Visit Orthopedic Surgery [place] [address] [phone] Deepa Clifton NP [address] [address] 07/31/2024 10:45 AM EDT Office Visit Orthopedic [address] [phone] Thomas Mark DPM [address] [address] 08/02/2024 1:00 PM EDT [facility] [address] [place] [address] Theodore Newsome MD [address] [place] [address] 08/23/2024 1:30 PM EDT Ancillary Procedure [facility] - [facility] [address] [phone] 09/04/2024 8:30 AM EDT Ancillary Procedure [facility] - [facility] [address] [place] [address] 10/19/2024 10:00 AM EDT Office Visit Vascular Surgery - [place] [address] [place] [phone] Paulette Santos PA [address] [place] [address] 12/08/2024 3:30 PM EDT Office Visit Internal Medicine - [facility] [address] [place] [address] Theodore Newsome MD [address] [place] [address] 01/24/2025 1:10 PM EDT Office Visit [facility] - [facility] [address] [facility] [address] [place] [address] Falguni Villarreal NP 300 [facility] [address] [place] [phone] Health Maintenance Due Date Last Done Comments Zoster Vaccines (1 of 2) 08/04/2016 06/09/2016 COVID-19 Vaccine (2 - Moderna risk series) 03/26/2021 02/26/2021 Hepatitis C Screening 02/09/2022 Medicare Annual Wellness Visit 02/09/2022 Osteoporosis Screening (Bone Density Screening) 02/09/2022 Social Influencers of Health Screening 02/09/2022 RSV Immunization Patients 60+ Years Old (1 - 1-dose 75+ series) 09/13/2022 Falls Risk Assessment 10/26/2024 10/27/2023 Hypertension/CHF/CAD Annual BMP Blood Test 01/30/2025 01/31/2024, 08/27/2023, 08/27/2023, Additional history exists Depression Screening 02/08/2025 02/09/2024, 10/27/19 Cholesterol Screening (Lipid Panel) 03/27/2029 03/27/2024, 08/07/2022 DTaP,Tdap,and Td Vaccines (3 - Td or Tdap) 08/26/2033 08/27/2023, 08/27/1993 Pneumococcal Vaccine: 50+ Years Completed 10/23/2022, 10/23/2022, 03/08/2014, Additional history exists Influenza Vaccine Completed 11/30/2023, , 02/13/2022, Additional history exists HIB Vaccines Aged Out No longer eligi ble based on patient's age to complete this topic HPV Vaccines Aged Out No longer eligi ble based on patient's age to complete this topic Hepatitis A Vaccines Aged Out No long er eligible based on patient's age to complete this topic Hepatitis B Vaccines Aged Out No long er eligible based on patient's age to complete this topic IPV Vaccines Aged Out No longer eligi ble based on patient's age to complete this topic MMR Vaccines Aged Out No longer eligi ble based on patient's age to complete this topic Meningococcal ACWY Vaccine Aged Out N o longer eligible based on patient's age to complete this topic Meningococcal B Vacine Aged Out No lo nger eligible based on patient's age to complete this topic RSV Immunization Patients Under 20 months Aged Out No longer eligible based on patient's age to complete this topic Varicella Vaccines Aged Out No longer eligible based on patient's age to complete this topic Procedures Procedure Name Priority Date/Time Associated Diagnosis Comments ECG 12-LEAD Routine 05/23/2024 1:48 PM EST PVC (premature ventricular contraction) MR LOWER EXTREMITY JOINT WO CONTRAST RIGHT Routine 05/16/2024 3:23 PM EST Unspecified internal derangement of right knee Pain and swelling of right knee Primary osteoarthritis of right knee LIPID PANEL Routine 03/27/2024 9:39 AM EST COMPREHENSIVE METABOLIC PANEL Routine 01/31/2024 11:26 AM EST Dermatophytosis of nail DEPRESSION SCREENING Routine 10/27/2023 FALLS RISK ASSESSMENT Routine 10/27/2023 from Last 3 Months or Most Recently Relevant to Health Maintenance Results * ECG 12 lead (05/23/2024 1:48 PM EST) Ventricular Rate ECG 49 BPM GEMUSE Atrial Rate 49 BPM GEMUSE P-R Interval 142 ms GEMUSE QRS Duration 70 ms GEMUSE Q-T Interval 458 ms GEMUSE QTc 413 ms GEMUSE P Wave Rescue 74 degrees GEMUSE R Rescue 65 degrees GEMUSE T Rescue 82 degrees GEMUSE ECG Interpretation Sinus bradycardia Right atrial enlargement Borderline ECG When compared with ECG of 24-JUN-2023 14:20, No significant change was found Confirmed by MD Evler, Rohith ([id number]) on 05/23/2024 2:29:27 PM GEMUSE 05/23/2024 1:48 PM EST 05/23/2024 2:29 PM EST us Rohith Raya MD ECG ORDERABLES Final Res ult GEMUSE * MR Lower Extremity Joint wo Contrast Right (05/16/2024 3:23 PM EST) Anatomical Region Laterality Modality Lower Extremities, Knee Right Magnetic Resonance 05/18/2024 1:31 PM EST Impressions 05/18/2024 1:41 PM EST 1. ??Small nondisplaced tears of the medial and lateral meniscus. 2. ??Cartilage loss in the medial and lateral compartment. ??Fall loss along the posterior weightbearing surface of the medial femoral condyle. ??Underlying curvilinear low signal line and mild adjacent marrow edema suggesting a nondisplaced subchondral fracture. A [employer] message has been communicated to the office of DEEPA CLIFTON via the [employer] on 05/18/2024 1:40 PM, Message ID [id number]. -------- FINAL REPORT -------- Dictated By: Zack Churchill Dictated Date: 05/18/2024 13:31 ET Assigned Physician: Zack Churchill Reviewed and Electronically Signed By: Zack Churchill Signed Date: 05/18/2024 13:41 ET Workstation ID: [id number] Transcribed By: Self Edit Transcribed Date: 05/18/2024 13:31 ET Narrative 05/18/2024 1:41 PM EST PROCEDURE: MRI of the right knee without contrast. HISTORY: Knee pain, stress fracture suspected, neg xray Rule out subchondral insufficiency fracture versus other internal derangement. COMPARISON: None. TECHNIQUE: Multiplanar multisequence MRI of the right knee without intravenous contrast administration. FINDINGS: MENISCI: Medial: There is a nondisplaced horizontal oblique tear of the posterior body segment which surfaces along the tibial articular surface. ??The body segment is slightly extruded into the gutter. Lateral: Small free edge tear of the body segment. CRUCIATE LIGAMENTS: Anterior and posterior cruciate ligaments are normal. COLLATERAL LIGAMENTS: The medial collateral ligament and lateral collateral ligamentous complex are normal. ARTICULAR CARTILAGE: Lateral compartment: Moderate cartilage thinning and irregularity along the medial aspect of the tibial plateau with small areas of underlying reactive marrow signal abnormality. Medial compartment: Fall cartilage loss along the posterior weightbearing surface of the femoral condyle. ??Mild underlying marrow edema with a curvilinear low signal line suggestive of a subchondral fracture. ??Moderate diffuse cartilage thinning along the tibial plateau. Patellofemoral compartment: Minimal cartilage thinning irregularity. OTHER: Moderate edema in the prepatellar subcutaneous fat. ??Slightly increased signal in the suprapatellar fat pad which could represent mild fat pad impingement. Procedure Note Zack Churchill MD - 05/18/2024 PROCEDURE: MRI of the right knee without contrast. HISTORY: Knee pain, stress fracture suspected, neg xray Rule out subchondral insufficiency fracture versus other internalderangement. COMPARISON: None. TECHNIQUE: Multiplanar multisequence MRI of the right knee withoutintravenous contrast administration. FINDINGS: MENISCI: Medial: There is a nondisplaced horizontal oblique tear of the posteriorbody segment which surfaces along the tibial articular surface. The bodysegment is slightly extruded into the gutter. Lateral: Small free edge tear of the body segment. CRUCIATE LIGAMENTS: Anterior and posterior cruciate ligaments arenormal. COLLATERAL LIGAMENTS: The medial collateral ligament and lateralcollateral ligamentous complex are normal. ARTICULAR CARTILAGE: Lateral compartment: Moderate cartilage thinning and irregularity alongthe medial aspect of the tibial plateau with small areas of underlyingreactive marrow signal abnormality. Medial compartment: Fall cartilage loss along the posterior weightbearingsurface of the femoral condyle. Mild underlying marrow edema with acurvilinear low signal line suggestive of a subchondral fracture.Moderate diffuse cartilage thinning along the tibial plateau. Patellofemoral compartment: Minimal cartilage thinning irregularity. OTHER: Moderate edema in the prepatellar subcutaneous fat. Slightlyincreased signal in the suprapatellar fat pad which could represent mildfat pad impingement. IMPRESSION: 1. Small nondisplaced tears of the medial and lateral meniscus. 2. Cartilage loss in the medial and lateral compartment. Fall loss alongthe posterior weightbearing surface of the medial femoral condyle.Underlying curvilinear low signal line and mild adjacent marrow edemasuggesting a nondisplaced subchondral fracture. A [employer] message has been communicated to the office of DEEPA Alfredo the [employer] on 05/18/2024 1:40 PM,Message ID [id number]. -------- FINAL REPORT -------- Dictated By: Zack Churchill Dictated Date: 05/18/2024 13:31 ET Assigned Physician: Zack Churchill Reviewed and Electronically Signed By: Zack Churchill Signed Date: 05/18/2024 13:41 ET Workstation ID: [id number] Transcribed By: Self Edit Transcribed Date: 05/18/2024 13:31 ET us Deepa Clifton OPERATIONS INTERN IMG MRI PROCEDURES Brandi l Result * (ABNORMAL) Lipid panel (03/27/2024 9:39 AM EST) Cholesterol Total 201(H) 100 - 199 mg/dL [facility] Triglycerides 197(H) 0 - 149 mg/dL [facility] HDL Cholesterol 49 >39 mg/dL [facility] VLDL Cholesterol Calculated 34 5 - 40 mg/dL [facility] LDL Chol Calc (NIH) 118(H) 0 - 99 mg/dL [facility] 1 03/27/2024 9:39 AM EST 03/27/2024 Narrative [facility] - 03/28/2024 1:05 AM EST Performed at: ??01 - [facility] [address] ??[id number] Artificial Candy Maker: Debora Obrien MD, Phone: ??[phone] us Maria E Jeffries OPERATIONS INTERN LAB BLOOD ORDERABLES Final R esult [facility] * (ABNORMAL) Comprehensive metabolic panel (01/31/2024 11:26 AM EST) Sodium 141 133 - 145 mmol/L LAB CHEMISTRY METHOD 01/31/2024 6:56 PM [facility] Potassium 4.9 3.5 - 5.5 mmol/L LAB CHEMISTRY METHOD 01/31/2024 6:56 PM [facility] Chloride 107 96 - 110 mmol/L LAB CHEMISTRY METHOD 01/31/2024 6:56 PM [facility] CO2 27 21 - 32 mmol/L LAB CHEMISTRY METHOD 01/31/2024 6:56 PM [facility] Anion Gap 7 3 - 11 LAB CHEMISTRY METHOD 01/31/2024 6:56 PM [facility] Glucose 102(H) 70 - 100 mg/dL LAB CHEMISTRY METHOD 01/31/2024 6:56 PM [facility] BUN 25 5 - 25 mg/dL LAB CHEMISTRY METHOD 01/31/2024 6:56 PM [facility] Creatinine 1.18(H) 0.50 - 1.10 mg/dL LAB CHEMISTRY METHOD 01/31/2024 6:56 PM [facility] eGFR 48(L) >=60 mL/min/1. 73m2 LAB CHEMISTRY METHOD 01/31/2024 6:56 PM [facility] Comment:Calculation based on the??Chronic Kidney Disease Epidemiology Collaboration (CKD-EPI) equation refit??without adjustment for race. BUN/Creatinine Ratio 21.2 LAB CHEMISTRY METHOD 01/31/2024 6:56 PM [facility] Calcium 10.0 8.5 - 10.5 mg/dL LAB CHEMISTRY METHOD 01/31/2024 6:56 PM [facility] AST (SGOT) 25 10 - 42 unit/L LAB CHEMISTRY METHOD 01/31/2024 6:56 PM [facility] ALT (SGPT) 29 10 - 60 unit/L LAB CHEMISTRY METHOD 01/31/2024 6:56 PM [facility] Alkaline Phosphatase 106 42 - 121 unit/L LAB CHEMISTRY METHOD 01/31/2024 6:56 PM [facility] Total Protein 7.4 6.0 - 8.0 g/dL LAB CHEMISTRY METHOD 01/31/2024 6:56 PM [facility] Albumin 3.8 3.2 - 5.0 g/dL LAB CHEMISTRY METHOD 01/31/2024 6:56 PM [facility] Total Bilirubin 0.3 0.0 - 1.4 mg/dL LAB CHEMISTRY METHOD 01/31/2024 6:56 PM [facility] Blood Venous blood specimen / Unknown Venipuncture / Unknown 01/31/2024 11:26 AM EST 01/31/2024 11:26 AM EST Thomas Mark DP LAB BLOOD ORDERABLES Final Result [facility] [address] [place] [address], * Falls Risk Assessment (10/27/2023) Falls Risk Assessment Abstracted Historical Provider MD HEALTH MAINTENANCE Final Result * Depression Screening (10/27/2023) Depression Screening Abstracted us Historical Provider HEALTH MAINTENANCE Final Result from Last 3 Months or Most Recently Relevant to Health Maintenance Insurance MEDICARE [facility] Advance Directives Documents on File Type Date Recorded Patient Clinical Trials Systems Administrator Expl anation Health Care Decision (hx) 10/01/2023 HE ALTH CARE PROXY Health Care Decision (hx) 10/01/2023 HE ALTH CARE PROXY Health Care Decision (hx) 09/29/2023 HE ALTH CARE PROXY Health Care Decision (hx) 09/29/2023 HE ALTH CARE PROXY Care Teams Bilingual Executive Assistant Relationship Specialty Start Date End Date Theodore Newsome MD [address] [place] [address] PCP - General Internal Medicine 02/08/24
== END 2024-06-27 12:26 | disposition home or self-care (01) ==
PROVIDERS: PCP Internal Medicine Hematology & Oncology; Visit Provider Internal Medicine Nephrology
DX: I10 Essential (primary) hypertension (principal); N18.31 Chronic kidney disease, stage 3a
CPT/HCPCS: 99204

== ENCOUNTER 2024-07-27 10:06 | Outpatient (REF) | payer MEDICARE, OTHER, SELFPAY ==
--- NOTE | ~2024-07-27 | US_ITS ---
CLINICAL HISTORY: N18.31 - Chronic kidney disease, stage 3a US Renal Comparison: None Findings: Right kidney normal size and echotexture, 9.6 cm length. Left kidney normal size and echotexture, 8.2 cm length. No collecting system dilatation of either kidney. Normal color Doppler. IMPRESSION: 1. Normal kidneys. This document has been electronically signed by: Andreas Espinoza MD on 07/28/2024 08:50:47
--- OUTSIDE RECORDS SUMMARY | 2024-07-27 11:23 | XMS_ITS | Clinical Summary ---
Author Organization Patient Business Ser [facility] Address [address] [place] [address] Care Team Providers Care [employer] Developer Name Role Phone Theodore Newsome MD Primary Care Provider [phone] Allergies Active Allergy Reactions Criticality Noted Date [...] pressure (disorder) Sulfacetamide Medium 07/06/2016 Rash/Dermatitis Medications albuterol HFA (PROAIR HFA ; PROVENTIL HFA ; VENTOLIN HFA) 90 mcg/actuation inhaler Inhale 2 Puffs into the lungs 4 times daily as needed for Wheezing or Shortness of Breath. 10/22/19 24 Active diclofenac (VOLTAREN) 1 % topical gel Apply 1 g topically 3 (three) times a day. 10/01/19 24 Active montelukast (SINGULAIR) 10 mg tablet Take 1 tablet (10 mg total) by mouth at bedtime. 09/20/19 21 Active hydrocortisone 1 % topical cream Apply twice daily to rectum as needed. 06/22/19 24 Active nitroglycerin (NITROSTAT) 0.[address] 1 tablet (0.4 mg total) under the tongue. every 5 minutes as needed for Chest pain. 05/03/19 24 Active estradioL (ESTRACE) 0.01 % (0.1 mg/gram) vaginal cream Insert 1 g into the vagina 2 (two) times a week. 02/18/20 23 Active budesonide-glyc opyr-formoterol (Breztri Aerosphere) 160-9-4.8 mcg/actuation HFA aerosol inhaler inhaler Inhale 2 Puffs into the lungs 2 times daily. 10/22/19 24 Active levothyroxine (SYNTHROID, LEVOTHROID) 75 mcg tabletIndicatio ns:Hypothyroidi sm, unspecified TAKE 1 TABLET BY MOUTH EVERY DAY 90 tablet 1 02/18/20 24 Active escitalopram (LEXAPRO) 10 mg tablet Take 1 tablet (10 mg total) by mouth 1 (one) time each day. 90 tablet 1 03/02/20 24 Active amLODIPine (NORVASC) 10 mg tablet Take 1 tablet (10 mg total) by mouth 1 (one) time each day. 90 tablet 1 05/24/19 25 Active metoprolol succinate (Toprol XL) 25 mg 24 hr tablet Take 1 tablet (25 mg total) by mouth 1 (one) time each day. Do not crush or chew. 90 each 3 06/28/19 25 026 Active pantoprazole (PROTONIX) 40 mg EC tablet Take 1 tablet (40 mg total) by mouth 2 (two) times a day. 180 tablet 1 07/04/19 25 Active erythromycin 5 mg/gram (0.5 %) ophthalmic ointment Apply 1cm ribbon in right eye up to 6x/ day x 10 days 12/13/19 24 025 Discontinued pantoprazole (PROTONIX) 40 mg EC tablet Take 1 tablet (40 mg total) by mouth 2 (two) times a day. 10/22/19 24 025 Discontinued(Re order) budesonide-form oteroL (SYMBICORT) 160-4.5 mcg/actuation inhaler Inhale 2 puffs by mouth. 025 Discontinued aspirin 81 mg EC tablet Take 1 tablet (81 mg total) by mouth 1 (one) time each day. 08/05/19 23 025 Discontinued blood sugar diagnostic (FreeStyle Lite Strips) test strip Use to check BS daily 05/28/19 24 025 Discontinued FREESTYLE LANCETS MISC Use to check BS daily 05/28/19 24 025 Discontinued Active Problems Problem Noted Date Diagnosed Date [facility] 05/09/2024 Stage 3a chronic kidney disease (CMS/[facility] V24, CM S/[facility] V28) 12/23/2023 Overview (12/23/2023): Per chart review meets [...] physical therapy when she was down in [place] and currently is in physical therapy, feels [...] Patient had MRI lumbar spine 11/07/2021 at [facility] that showed mild multilevel degenerative changes, including [...] occur when she has her chest discomfort. client care specialist in the past did not reveal any concerning findings. Her baseline EKG is showing sinus bradycardia with a heart rate of 53 bpm. She states that her palpitations are worse this year when compared to previous. We will update a 48-hour casket trimmer to assess for any significant cardiac arrhythmias. No changes to her medical therapies today. SOB (shortness of breath) 10/10/2021 Overview (12/23/2023): Last Assessment & Plan: Patient continues to report exertional shortness of breath. She does have COPD and recent CAT scan showing emphysema. She will be following with her entrepreneurial finance professor later this week. Superior mesenteric artery stenosis ([facility] V24 ) 10/10/2021 Aortic calcification ([facility] V24) 05/08/2021 Overview (12/23/2023): Xray at ER 2021 Last Assessment & Plan: Patient continues to follow with vascular. She has known abdominal aortic stenosis. 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 07/18/2020 Difficulty walking 07/18/2020 Chronic fatigue 06/25/2020 Other pulmonary embolism wit hout acute cor pulmonale (CMS/HCC V24, CMS/HCC V28) 06/25/2020 Other secondary pulmonary hy pertension (CMS/HCC V24, CMS/HCC V28) 06/25/2020 Moderate persistent asthma, uncomplicated 2020 Multiple lung nodules 05/17/2020 Snoring 05/17/2020 Ptosis of right eyebrow 02/16/2019 Arthritis 10/18/2018 Abdominal pain 10/18/2018 Chronic obstructive pulmonar y disease (CMS/HCC V24, CMS/HCC V28) 10/18/2018 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 Gastroesophageal reflux disease [...] Encounters Date Type Department Care Team Description 07/06/2024 Telephone Orthopedic Surgery - [place] [address] [phone] Opal Santo 07/05/2024 9:00 AM EDT Office Visit Orthopedic Surgery [facility] [address] [phone] Deepa Clifton NP Subchondral insufficiency fracture of condyle of right femur, initial encounter ([facility] V24, [facility] V28) (Primary Dx); Primary osteoarthritis of right knee 06/07/2024 2:45 PM EDT Office Visit Internal Medicine - [facility] [address] [place] [address] Theodore Newsome MD Primary hypertension (Primary Dx); Stage 3a chronic kidney disease (CMS/HCC V24, CMS/HCC V28); Bilateral leg edema 05/31/2024 Telephone Orthopedic Surgery - [place] [address] [place] [phone] Deepa Clifton NP 05/24/2024 Telephone Pediatrics - [place] [address] [place] [address] Theodore Newsome MD Med Refill 05/23/2024 1:30 PM EST Office Visit [facility] - [address] [facility] [address] [place] [phone] Rohith Raya MD PVC (premature ventricular contraction) (Primary Dx); Primary hypertension; Other chest pain 05/22/2024 Telephone Orthopedic Surgery - [place] [address] [place] [phone] Deepa Clifton NP 05/16/2024 1:41 PM EST - 05/16/2024 11:59 PM EST Hospital Encounter [facility] MRI [address] [place] [phone] Unspecified internal derangement of right knee; Pain and swelling of right knee; Primary osteoarthritis of right knee Discharge Disposition: Home or Self Care 05/10/2024 3:30 PM EST Consult Orthopedic Surgery [facility] [address] [phone] Deepa Clifton NP Pain and swelling of right knee (Primary Dx); Unspecified internal derangement of right knee; Primary osteoarthritis of right knee; Subchondral insufficiency fracture of condyle of right femur, initial encounter ([facility] V24, [facility] V28) 05/08/2024 Telephone Pediatrics - [place] [address] [place] [address] Theodore Newsome MD Medication Reaction 05/03/2024 3:30 PM EST Office Visit Bleaching Machine Operator - [place] [address] [place] [phone] Theodore Newsome MD Follow-up exam (Primary Dx); Precordial pain; Bilateral lower extremity edema 05/02/2024 10:45 AM EST Office Visit Orthopedic Surgery [facility] [address] [phone] Thomas Mark DPM Localized edema (Primary Dx); [...] SUBTOTAL THYROIDECTOMY OTHER SURGICAL HISTORY 1979 PROCEDURE: [place] TOTAL ABDOMINAL HYSTERECT W/WO RMVL TUBE OVARY; [...] chronic, sta ge III (GFR 30-59 ml/min) ([facility] V24, [facility] V28) DX:Kidney disease, chronic, stage III (GFR 30-59 ml/min) ([facility]); COMMENT: Patient states is likely related to her chronic naproxen use, no longer takes NSAIDs Osteoporosis DX:Osteoporosis Multiple lung nodules 05/17/2020 DX:Multipl e lung nodules History of pulmonary embolus (PE) 05/08/2021 DX:History of pulmonary embolus (PE); COMMENT: In car, took Elliquis for 3 months. Chronic gastritis [...] Care Team (Late st Contact Info) Description 07/31/2024 10:45 AM EDT Office Visit Orthopedic Surgery - [place] [address] [phone] Thomas Mark DPM [address] [address] 08/02/2024 1:00 PM EDT Office Visit Internal Medicine - [facility] [address] [place] [phone] Theodore Newsome MD [address] [place] [address] 08/23/2024 1:30 PM EDT Ancillary Procedure [facility] - [facility] [address] [facility] [address] [place] [address] 09/04/2024 8:30 AM EDT Ancillary Procedure [facility] - [facility] [address] [facility] [address] [place] [address] 10/18/2024 11:00 AM EDT Office Visit Vascular Surgery - [place] [address] [facility] [address] [place] [phone] Azra West MD 300 [facility] [address] [place] [address] 12/08/2024 3:30 PM EDT [facility] [phone] Theodore Newsome MD [address] [place] [address] 01/24/2025 1:10 PM EDT Office Visit [facility] - [facility] [address] [facility] [address] [place] [phone] Falguni Villarreal NP 300 [facility] [address] [place] [phone] Health Maintenance Due Date Last Done Comments Zoster Vaccines (1 of 2) 08/04/2016 06/09/2016 COVID-19 Vaccine (2 - Moderna risk series) 03/26/2021 02/26/2021 Hepatitis C Screening 02/09/2022 Medicare Annual Wellness Visit 02/09/2022 Osteoporosis Screening (Bone Density Screening) 02/09/2022 Social Influencers of Health Screening 02/09/2022 RSV Immunization Adult Patients (1 - 1-dose 75+ series) 09/13/2022 Falls [...] age to complete this topic Meningococcal B Vaccine Aged Out No l onger eligible based on patient's age to complete [...] GEMUSE QTc 413 ms GEMUSE P Wave [place] 74 degrees GEMUSE R [place] 65 degrees GEMUSE T [place] 82 degrees GEMUSE ECG Interpretation Sinus bradycardia Right atrial enlargement Borderline ECG When compared with ECG of 24-JUN-2023 14:20, No significant change was found Confirmed by MD Elver, Rohith ([id number]) on 05/23/2024 2:29:27 PM GEMUSE 05/23/2024 1:48 [...] edema suggesting a nondisplaced subchondral fracture. A [employer] message has been communicated to the office of DEEPA CLIFTON via the [employer] System on 05/18/2024 1:40 PM, Message ID [id number]. -------- FINAL REPORT -------- Dictated By: Zack Churchill Dictated Date: 05/18/2024 13:31 ET Assigned Physician: Zack Churchill Reviewed and Electronically Signed By: Zack Churchill Signed Date: 05/18/2024 13:41 ET Workstation ID: [id number] Transcribed By: Self Edit Transcribed Date: 05/18/2024 [...] marrow edemasuggesting a nondisplaced subchondral fracture. A [employer] message has been communicated to the office of DEEPA Alfredo the [employer] System on 05/18/2024 1:40 PM,Message ID [id number]. -------- FINAL REPORT -------- Dictated By: Zack Churchill Dictated Date: 05/18/2024 13:31 ET Assigned Physician: Zack Churchill Reviewed and Electronically Signed By: Zack Churchill Signed Date: 05/18/2024 13:41 ET Workstation ID: [id number] Transcribed By: Self Edit Transcribed Date: 05/18/2024 13:31 ET us Deepa Clifton NP IMG MRI PROCEDURES Brandi l Result * [...] AM EST Performed at: ??01 - [facility] [address] ??[id number] Marketing Assistant Retail Division: Debora Obrien MD, Phone: ??[phone] us Maria E Jeffries RADIOTELEGRAPHIST LAB BLOOD ORDERABLES Final R esult [facility] 1 * (ABNORMAL) Comprehensive metabolic panel (01/31/2024 11:26 AM EST) Pathologist [facility] Sodium 141 133 - 145 mmol/L LAB CHEMISTRY METHOD 01/31/2024 6:56 PM [facility] Potassium 4.9 3.5 - 5.5 mmol/L LAB CHEMISTRY METHOD 01/31/2024 6:56 PM [facility] Chloride 107 96 - 110 mmol/L LAB CHEMISTRY METHOD 01/31/2024 6:56 PM [facility] CO2 27 21 - 32 mmol/L LAB CHEMISTRY METHOD 01/31/2024 6:56 PM [facility] Anion Gap 7 3 - 11 LAB CHEMISTRY METHOD 01/31/2024 6:56 PM [facility] Glucose 102(H) 70 - 100 mg/dL LAB CHEMISTRY METHOD 01/31/2024 6:56 PM [facility] BUN 25 5 - 25 mg/dL LAB CHEMISTRY METHOD 01/31/2024 6:56 PM [facility] Creatinine 1.18(H) 0.50 - 1.10 mg/dL LAB CHEMISTRY METHOD 01/31/2024 6:56 PM [facility] eGFR 48(L) >=60 mL/min/1. 73m2 LAB CHEMISTRY METHOD 01/31/2024 6:56 PM [facility] Comment:Calculation based on the??Chronic Kidney Disease Epidemiology Collaboration (CKD-EPI) equation refit??without adjustment for race. BUN/Creatinine Ratio 21.2 LAB CHEMISTRY METHOD 01/31/2024 6:56 PM [facility] Calcium 10.0 8.5 - 10.5 mg/dL LAB CHEMISTRY METHOD 01/31/2024 6:56 PM [facility] AST (SGOT) 25 10 - 42 unit/L LAB CHEMISTRY METHOD 01/31/2024 6:56 PM [facility] ALT (SGPT) 29 10 - 60 unit/L LAB CHEMISTRY METHOD 01/31/2024 6:56 PM [facility] Alkaline Phosphatase 106 42 - 121 unit/L LAB CHEMISTRY METHOD 01/31/2024 6:56 PM [facility] Total Protein 7.4 6.0 - 8.0 g/dL LAB CHEMISTRY METHOD 01/31/2024 6:56 PM [facility] Albumin 3.8 3.2 - 5.0 g/dL LAB CHEMISTRY METHOD 01/31/2024 6:56 PM [facility] Total Bilirubin 0.3 0.0 - 1.4 mg/dL LAB CHEMISTRY METHOD 01/31/2024 6:56 PM [facility] Blood Venous blood specimen / Unknown Venipuncture / Unknown 01/31/2024 11:26 AM EST 01/31/2024 11:26 AM EST Thomas Mark DPM LAB BLOOD ORDERABLES Final Result [facility] [address] [place] [address], * Falls Risk Assessment (10/27/2023) Falls Risk Assessment Abstracted us Historical Provider HEALTH MAINTENANCE Final Result * Depression Screening (10/27/2023) Depression Screening Abstracted us Historical Provider MD HEALTH MAINTENANCE Final Result from Last 3 Months or Most Recently Relevant to Health [place] [id number] MEDICARE [facility] Advance Directives Documents on File Type Date Recorded 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
== END 2024-07-27 10:07 | disposition home or self-care (01) ==
LOC: HO.HMGCX 10:06
PROVIDERS: PCP Internal Medicine Hematology & Oncology; Visit Provider Internal Medicine Nephrology
DX: N18.31 Chronic kidney disease, stage 3a (principal); I10 Essential (primary) hypertension
CPT/HCPCS: 76775; 93975

== ENCOUNTER → 2024-07-27 10:07 | Outpatient (BNV) | payer MEDICARE, OTHER, SELFPAY | PROVIDERS: PCP Internal Medicine Hematology & Oncology; Visit Provider Specialist | DX: N18.31 Chronic kidney disease, stage 3a (principal) | CPT/HCPCS: 76775; 93975 ==

== ENCOUNTER 2024-08-15 10:15 | Outpatient (AMB) | payer MEDICARE, OTHER, SELFPAY ==
[2024-08-15 10:17] VITALS: BP 132/68; PULSE 58; O2SAT 97; BMI 31.4
--- NOTE | 2024-08-15 10:17 | HO.NEPHOV ---
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 She has a longstanding hypertension and had been on lisinopril in the past which has been discontinued when she had some dizziness while taking the medication. She is currently on amlodipine which is keeping her blood pressure at goal. She has history of renal calculi. She is also taking hydrochlorothiazide for edema which is helping to keep her blood pressure at goal. She has not had any renal calculi ever since she has been on hydrochlorothiazide. She has history of A1c going up to 7 which had improved to upper 6. She feels tired. She denies chest pain, shortness of breath, nausea, vomiting, diarrhea, paroxysmal nocturnal dyspnea, orthopnea, dysuria, microscopic hematuria, sensorineural deafness. She has history of aortic aneurysm and follows up with Dr. Doe in [facility]. She does not take nonsteroidal anti-inflammatories. [facility] Medical History (Updated 06/27/24 @ 22:35 by Karl Blanco MD) Hypercholesterolemia Hypertension Hypothyroidism Other secondary pulmonary hypertension Surgical History History of cataract surgery H/O partial thyroidectomy Hx of cholecystectomy H/O: hysterectomy Family History Mother Diabetes Hypertension Heart disease Social History Alcohol intake: never Patient Tobacco Use Status: Never used Tobacco Review of Systems Const All systems reviewed & are unremarkable except as noted in HPI and below Physical Exam Vital Signs: Last Vital Signs Pulse 58 08/15/24 10:17 BP 132/68 08/15/24 10:17 Pulse Ox 97 08/15/24 10:17 Oxygen Delivery Method Room Air 08/15/24 10:17 BMI result Body Mass Index 31.4 Const General: comfortable and no acute distress Orientation/consciousness: patient oriented x3 HEENT Head: Yes normocephalic Mouth: Normal oral and palatal mucosa present Eyes EOM: EOMs intact bilaterally Neck Neck: Yes supple Resp Auscultation: clear to auscultation bilaterally Cardio Jugular venous distension: no JVD Rate: regular rate GI Palpation (GI): Soft to palpation Auscultation: normal bowel sounds General: Yes no CVA tenderness Back/Spine/Pelvis Back: no CVA tenderness Skin General skin exam: no rashes or lesions noted Neuro General: patient oriented x3 and moves all extremities Extrem General: Yes no pedal edema Results Reviewed Nephrology Results: Sodium 141 mmol/L (135-145) 06/27/24 Potassium 4.8 mmol/L (3.3-5.1) 06/27/24 Chloride 107 mmol/L (96-108) 06/27/24 Carbon Dioxide 25 mmol/L (22-29) 06/27/24 BUN 21 mg/dL (9-16) H 06/27/24 Creatinine 1.03 mg/dL (0.5-1.4) 06/27/24 Calcium 9.5 mg/dL (8.4-10.2) 06/27/24 Phosphorus 3.6 mg/dL (2.7-4.5) 06/27/24 PTH Intact 63.1 pg/mL (8.7-77.1) 06/27/24 Urine Creatinine 260.51 mg/dL 06/27/24 Protein/Creatinin Ratio 0.09 (<0.2) 06/27/24 Renal US 07/28/24 Assessment & Plan Assessment & Plan (1) CKD stage 3a, GFR 45-59 ml/min: Code(s): N18.31 - Chronic kidney disease, stage 3a Category: Medical (2) Hypertension: Code(s): I10 - Essential (primary) hypertension Category: Medical Qualifiers: Hypertension type: unspecified Qualified Code(s): I10 - Essential (primary) hypertension Plan 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 She has history of aortic aneurysm. She has had issues with CANDIDO inhibitor. She has no renal calculi ever since she has been on hydrochlorothiazide. She has edema from amlodipine. Her renal functions are currently stable. Her blood work, urine studies were reviewed. Renal USS is normal . She is on low-dose CANDIDO inhibitor and is off calcium channel anni. She should maintain good hydration and avoid nonsteroidal anti-inflammatories. All these have been explained in detail. Answered all questions. Follow-up appointment given Orders: Orders Electrolytes 6 Months I10 - Essential (primary) hypertension, N18.31 - Chronic kidney disease, stage 3a Creatinine 6 Months I10 - Essential (primary) hypertension, N18.31 - Chronic kidney disease, stage 3a Blood Urea Nitrogen 6 Months I10 - Essential (primary) hypertension, N18.31 - Chronic kidney disease, stage 3a Coding Level of Care Code Est Pt Level 4 (35239) Diagnoses CKD stage 3a, GFR 45-59 ml/min N18.31 Hypertension, unspecified type I10 Hypertension type: unspecified
--- OUTSIDE RECORDS SUMMARY | 2024-08-15 11:27 | XMS_ITS | Clinical Summary ---
Author Organization Patient Business Ser Formerly named [facility] Address [address] [place] [address] Care Team Providers Care Bore Mill Operator For Plastic Name Role Phone Theodore Newsome MD Primary Care Provider [phone] Allergies Active Allergy Reactions Criticality Noted Date [...] Wheezing or Shortness of Breath. 4 Active diclofenac (VOLTAREN) 1 % topical gel [...] 2 (two) times a week. 3 Active budesonide-glyc opyr-formoterol (Breztri Aerosphere) 160-9-4.8 mcg/actuation HFA aerosol inhaler inhaler Inhale 2 Puffs into the lungs 2 times daily. 4 Active levothyroxine (SYNTHROID, LEVOTHROID) 75 mcg tabletIndicatio ns:Hypothyroidi sm, unspecified TAKE 1 TABLET BY MOUTH EVERY DAY 90 tablet 1 4 Active escitalopram (LEXAPRO) 10 mg tablet Take 1 tablet (10 mg total) by mouth 1 (one) time each day. 90 tablet 1 4 Active metoprolol succinate (Toprol XL) 25 mg 24 hr tablet Take 1 tablet (25 mg total) by mouth 1 (one) time each day. Do not crush or chew. 90 each 3 5 06/28/19 26 Active pantoprazole (PROTONIX) 40 mg EC tablet Take 1 tablet (40 mg total) by mouth 2 (two) times a day. 180 tablet 1 5 Active lisinopriL (PRINIVIL,ZESTR IL) 5 mg tablet Take 1 tablet (5 mg total) by mouth 1 (one) time each day. 30 each 5 5 01/30/20 25 Active amLODIPine (NORVASC) 10 mg tablet Take 1 tablet (10 mg total) by mouth 1 (one) time each day. 90 tablet 1 5 08/03/19 25 Discontinu ed(Side effects) predniSONE (DELTASONE) 20 mg tablet Take 1 tablet (20 mg total) by mouth 2 (two) times a day for 5 days. 10 each 5 08/08/19 25 Active Problems Problem Noted Date Diagnosed Date Lumbago 05/09/2024 Stage 3a chronic kidney disease (CMS/HCC V24, CM S/HCC V28) 12/23/2023 Overview (12/23/2023): Per chart review [...] physical therapy when she was down in [place] and currently is in physical therapy, feels [...] Patient had MRI lumbar spine 11/07/2021 at [facility] that showed mild multilevel degenerative changes, including [...] occur when she has her chest discomfort. 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 Her baseline EKG is showing sinus bradycardia with a heart rate of 53 bpm. She states that her palpitations are worse this year when compared to previous. We will update a 48-hour balance screwhead polisher to assess for any significant cardiac arrhythmias. No changes to her medical therapies today. SOB (shortness of breath) 10/10/2021 Overview (12/23/2023): Last Assessment & Plan: Patient continues to report exertional shortness of breath. She does have COPD and recent CAT scan showing emphysema. She will be following with her upper shaper later this week. Superior mesenteric artery stenosis (CMS/HCC V24 ) 10/10/2021 Aortic calcification (CMS/HCC V24) 05/08/2021 Overview (12/23/2023): Xray at ER 2021 Last Assessment & Plan: Patient continues to follow with vascular. She has known abdominal aortic stenosis. Assessment & Plan (05/23/2024 2:17 PM EST): Orders: ECG 12 lead CKD (chronic kidney disease) 05/08/2021 Colon polyp 05/08/2021 COPD (chronic obstructive pu lmonary disease) (CMS/HCC V24, CMS/HCC V28) 05/08/2021 Depression 05/08/2021 GERD (gastroesophageal reflux [...] Encounters Date Type Department Care Team Description 08/09/2024 Telephone Pediatrics - [address] [phone] Theodore Newsome MD Results 08/02/2024 1:20 PM EDT - 08/02/2024 11:59 PM EDT [facility] [phone] Pain of right hand Discharge Disposition: Home or Self Care 08/02/2024 1:00 PM EDT Office Visit Internal Medicine - [address] [phone] Theodore Newsome MD Pain of right hand (Primary Dx); Bilateral leg edema; Stage 3a chronic kidney disease ([facility] V24, CMS/[facility] V28); Primary hypertension 07/31/2024 10:45 AM EDT Office Visit Orthopedic Surgery [facility] [address] [phone] Thomas Mark DPM Pain in toe of left foot (Primary Dx); Ingrowing left great toenail; Dermatophytosis, nail 07/06/[address] [facility] [address] [phone] Opal Santo 07/05/2024 9:00 AM EDT Office Visit Orthopedic [facility] [address] [address] Deepa Lakhani NP Subchondral insufficiency fracture of condyle of right femur, initial encounter ([facility] V24, [facility] V28) (Primary Dx); Primary osteoarthritis of right knee 06/07/2024 2:45 PM EDT Office Visit Internal Medicine - [address] [phone] Theodore Newsome MD Primary hypertension (Primary Dx); Stage 3a chronic kidney disease (CMS/HCC V24, CMS/HCC V28); Bilateral leg edema 05/31/2024 Telephone Orthopedic Surgery - [place] [address] [place] [phone] Deepa Lakhani NP 05/24/2024 Telephone Pediatrics - [facility] [address] [place] [address] Theodore Newsome MD Med Refill 05/23/2024 1:30 PM EST Office Visit [facility] [address] [place] [address] Rohith Raya MD PVC (premature ventricular contraction) (Primary Dx); Primary hypertension; Other chest pain 05/22/2024 Telephone Orthopedic Surgery - [place] [address] [place] [phone] Deepa Lakhani NP from Last 3 Months Immunizations Name Administration [...] chronic, sta ge III (GFR 30-59 ml/min) (CMS/HCC V24, CMS/HCC V28) DX:Kidney disease, chronic, stage III (GFR 30-59 ml/min) ([facility]); COMMENT: Patient states is likely related to [...] Sign Reading Time Taken Comments Blood Pressure 146/68 08/02/2024 12:57 PM EDT Pulse 55 08/02/2024 12:57 PM EDT Temperature - - Respiratory Rate - - Oxygen Saturation 97% 08/02/2024 12:57 PM EDT room air Inhaled Oxygen Concentration - - Weight 73.8 kg (162 lb 9.6 oz) 08/02/2024 12:57 PM EDT Height 154.9 cm (5' 0.98 ) 07/31/2024 10:44 AM E DT Body Mass Index 30.74 07/31/2024 10:44 AM EDT Plan of Treatment Upcoming Encounters Date Type Department Care Team (Late st Contact Info) Description 08/23/2024 1:30 PM EDT Ancillary Procedure [facility] - [place] [address] [phone] 09/04/2024 8:30 AM EDT Ancillary Procedure [facility] - [address] [phone] 09/19/2024 2:00 PM EDT Office Visit Internal Medicine - [facility] [address] [place] [address] Theodore Newsome MD [address] [place] [address] 10/18/2024 11:00 AM EDT Office Visit Vascular Surgery [facility] [address] [address] Azra West MD [address] [address] 10/31/2024 10:15 AM EDT Office Visit Orthopedic Surgery [facility] 250 175 [facility] [address] [place] [phone] Thomas Mark DPM 175 [facility] 250 [place] [address] 12/12/2024 11:15 AM EDT Office Visit Internal Medicine - [facility] 305 [place] [address] Theodore Newsome MD 305 [place] [address] 01/24/2025 1:10 PM EDT Office Visit [facility] - [facility] 102 300 [facility] 102 [place] [phone] Falguni Villarreal NP 300 [facility] 154 [place] [phone] Health Maintenance Due Date Last Done Comments Zoster Vaccines (1 of 2) 08/04/2016 06/09/2016 COVID-19 Vaccine (2 - Moderna risk series) 03/26/2021 02/26/2021 Hepatitis C Screening 02/09/2022 Medicare Annual Wellness Visit 02/09/2022 Osteoporosis Screening (Bone Density Screening) 02/09/2022 Social Influencers of Health Screening 02/09/2022 RSV Immunization Adult Patients (1 - 1-dose 75+ series) 09/13/2022 Falls Risk Assessment 10/26/2024 10/27/2023 Depression Screening 02/08/2025 02/09/2024, 10/27/19 24 Hypertension/CHF/CAD Annual BMP Blood Test 08/02/2025 08/02/2024, 01/31/2024, 08/27/2023, Additional history exists Cholesterol Screening (Lipid Panel) 08/02/2029 08/02/2024, 03/27/2024, 08/07/2022 DTaP,Tdap,and Td Vaccines (3 - [...] Procedure Name Priority Date/Time Associated Diagnosis Comments LIPID PANEL WITH REFLEX TO DIRECT LDL Routine 08/02/2024 1:45 PM EDT Hyperlipidemia BASIC METABOLIC PANEL Routine 08/02/2024 1:45 PM EDT Stage 3a chronic kidney disease (CMS/HCC V24, CMS/HCC V28) XR HAND 3+ VIEWS RIGHT Routine 08/02/2024 1:40 PM EDT Pain of right hand ECG 12-LEAD Routine 05/23/2024 1:48 PM EST PVC (premature ventricular contraction) DEPRESSION SCREENING Routine 10/27/2023 FALLS RISK ASSESSMENT Routine 10/27/2023 from Last 3 Months or Most Recently Relevant to Health Maintenance Results * (ABNORMAL) Lipid panel with reflex to direct LDL (08/02/2024 1:45 PM EDT) Cholesterol 181 0 - 200 mg/dL LAB CHEMISTRY METHOD 08/02/2024 4:48 PM EDT [facility] Triglycerides 304(H) 0 - 150 mg/dL LAB CHEMISTRY METHOD 08/02/2024 4:48 PM EDT [facility] HDL 54 >=40 mg/dL LAB CHEMISTRY METHOD 08/02/2024 4:48 PM EDT [facility] LDL Calculated 66 0 - 100 mg/dL LAB CHEMISTRY METHOD 08/02/2024 4:48 PM EDT [facility] VLDL Cholesterol Royer 60.8 mg/dL LAB CHEMISTRY METHOD 08/02/2024 4:48 PM EDT [facility] Non HDL Chol. (LDL+VLDL) 127 <145 mg/dL LAB CHEMISTRY METHOD 08/02/2024 4:48 PM EDT [facility] Chol/HDL Ratio 3.4 0.0 - 4.4 LAB CHEMISTRY METHOD 08/02/2024 4:48 PM EDT [facility] Blood Venous blood specimen / Unknown Venipuncture / Unknown 08/02/2024 1:45 PM EDT 08/02/2024 1:46 PM EDT us Maria E Jeffries FRONT DESK AGENT LAB BLOOD ORDERABLES Final R esult [facility] [address] [place] [address], * (ABNORMAL) Basic metabolic panel (08/02/2024 1:45 PM EDT) Pathologist [facility] Sodium 139 133 - 145 mmol/L LAB CHEMISTRY METHOD 08/02/2024 4:44 PM EDT [facility] Potassium 4.7 3.5 - 5.5 mmol/L LAB CHEMISTRY METHOD 08/02/2024 4:44 PM EDT [facility] Chloride 105 96 - 110 mmol/L LAB CHEMISTRY METHOD 08/02/2024 4:44 PM EDT [facility] CO2 28 21 - 32 mmol/L LAB CHEMISTRY METHOD 08/02/2024 4:44 PM EDT [facility] Anion Gap 6 3 - 11 LAB CHEMISTRY METHOD 08/02/2024 4:44 PM [facility] Glucose 96 70 - 100 mg/dL LAB CHEMISTRY METHOD 08/02/2024 4:44 PM EDT [facility] BUN 22 5 - 25 mg/dL LAB CHEMISTRY METHOD 08/02/2024 4:44 PM [facility] Creatinine 1.12(H) 0.50 - 1.10 mg/dL LAB CHEMISTRY METHOD 08/02/2024 4:44 PM [facility] eGFR 51(L) >=60 mL/min/1. 73m2 LAB CHEMISTRY METHOD 08/02/2024 4:44 PM T [facility] Comment:Calculation based on the Chronic Kidney Disease Epidemiology Collaboration (CKD-EPI) equation refit without adjustment for race. BUN/Creatinine Ratio 19.6 LAB CHEMISTRY METHOD 08/02/2024 4:44 PM EDT [facility] Calcium 9.2 8.5 - 10.5 mg/dL LAB CHEMISTRY METHOD 08/02/2024 4:44 PM EDT [facility] Blood Venous blood specimen / Unknown Venipuncture / Unknown 08/02/2024 1:45 PM EDT 08/02/2024 1:46 PM EDT us Theodore Newsome MD LAB BLOOD ORDERABLES Final Resu lt [facility] [address] [place] [address], * XR Hand 3+ Views Right (08/02/2024 1:40 PM EDT) Anatomical Region Laterality Modality Upper Extremities, Hand Right Radiogra phic Imaging 08/02/2024 8:23 PM EDT Impressions 08/02/2024 8:24 PM EDT No acute fracture or dislocation of the right hand. -------- FINAL REPORT -------- Dictated By: Melvina Fischer Dictated Date: 08/02/2024 20:23 ET Assigned Physician: Melvina Fischer Reviewed and Electronically Signed By: Melvina Fischer Signed Date: 08/02/2024 20:24 ET Workstation ID: [id number] Transcribed By: Self Edit Transcribed Date: 08/02/2024 20:23 ET Narrative 08/02/2024 8:24 PM EDT HISTORY: JOINT PAIN, HAND TECHNIQUE: AP, lateral, and oblique radiographs of the right hand COMPARISON: None FINDINGS: There is normal mineralization with no evidence of fracture or malalignment. ??The visualized articulations are normal. ??No significant soft tissue swelling is identified. Procedure Note Melvina Fischer MD - 08/02/2024 HISTORY: JOINT PAIN, HAND TECHNIQUE: AP, lateral, and oblique radiographs of the right hand COMPARISON: None FINDINGS: There is normal mineralization with no evidence of fracture ormalalignment. The visualized articulations are normal. No significantsoft tissue swelling is identified. IMPRESSION: No acute fracture or dislocation of the right hand. -------- FINAL REPORT -------- Dictated By: Melvina Fischer Dictated Date: 08/02/2024 20:23 ET Assigned Physician: Melvina Fischer Reviewed and Electronically Signed By: Melvina Fischer Signed Date: 08/02/2024 20:24 ET Workstation ID: [id number] Transcribed By: Self Edit Transcribed Date: 08/02/2024 20:23 ET Theodore Newsome MD IMG XR PROCEDURES Final Result * ECG 12 lead (05/23/2024 1:48 PM EST) Ventricular Rate ECG 49 BPM GEMUSE Atrial Rate 49 BPM GEMUSE P-R Interval 142 ms GEMUSE QRS Duration 70 ms GEMUSE Q-T Interval 458 ms GEMUSE QTc 413 ms GEMUSE P Wave [place] 74 degrees GEMUSE R [place] 65 degrees GEMUSE T [place] 82 degrees GEMUSE ECG Interpretation Sinus bradycardia Right atrial enlargement Borderline ECG When compared with ECG of 24-JUN-2023 14:20, No significant change was found Confirmed by MD Elver, Rohith ([id number]) on 05/23/2024 2:29:27 PM GEMUSE 05/23/2024 1:48 PM EST 05/23/2024 2:29 PM EST Rohith Raya MD ECG ORDERABLES Final Res ult GEMUSE * Falls Risk Assessment (10/27/2023) Falls Risk Assessment Abstracted Historical Provider HEALTH MAINTENANCE Final Result * Depression Screening (10/27/2023) Depression Screening Abstracted Historical Provider HEALTH MAINTENANCE Final Result from Last 3 Months or Most Recently Relevant to Health Maintenance Insurance MEDICARE [facility] Advance Directives Documents on File Type Date Recorded 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
== END 2024-08-15 10:37 | disposition home or self-care (01) ==
LOC: HO.HKAS 10:16
PROVIDERS: PCP Internal Medicine Hematology & Oncology; Visit Provider Internal Medicine Nephrology
DX: N18.31 Chronic kidney disease, stage 3a (principal); I10 Essential (primary) hypertension
CPT/HCPCS: 99214

== ENCOUNTER → 2024-08-15 10:15 | Outpatient (BNVA) | payer MEDICARE, OTHER, SELFPAY | PROVIDERS: PCP Internal Medicine Hematology & Oncology; Visit Provider Internal Medicine Nephrology | DX: I12.9 Hypertensive chronic kidney disease with stage 1 through stage 4 chronic kidney disease, or unspecified chronic kidney disease (principal); N18.31 Chronic kidney disease, stage 3a | CPT/HCPCS: 99212 ==

== ENCOUNTER 2025-02-19 10:52 | Outpatient (REF) | payer MEDICARE, OTHER, SELFPAY ==
--- OUTSIDE RECORDS SUMMARY | 2025-02-19 13:51 | XMS_ITS ---
Author Organization Patient Business [facility] Address [address] [place] [address] Care Team Providers Care Project Buyer Name Role Phone Theodore Newsome MD Primary Care Provider [phone] Chronic Care Management Status:Ongoing (Active) Start date:01/10/2025 Enrollment date:01/10/2025 Enrollment reason:Referred by provider Case Team Name Relationship Phone Gardenia Frausto RN(Responsible Staff) Gasoline Tester Continued Care and Services Coordination
--- OUTSIDE RECORDS SUMMARY | 2025-02-19 13:51 | XMS_ITS ---
Author Name [facility] Organization Unknown History of Medication Use Medication Directions Dispensed Refills Start Date End Date Stat us amLODIPine (NORVASC) 10 mg tablet Take 1 tablet (10 mg total) by mouth 1 (one) time each day. 05/24/2024 active hydroCHLOROthiazide 12.5 mg tablet Take 1 tablet (12.5 mg total) by mouth 1 (one) time each day. 05/03/2024 active escitalopram (LEXAPRO) 10 mg tablet Take 1 tablet (10 mg total) by mouth 1 (one) time each day. 03/02/2024 active levothyroxine (SYNTHROID, LEVOTHROID) 75 mcg tablet TAKE 1 TABLET BY MOUTH EVERY DAY 02/18/2024 active erythromycin 5 mg/gram (0.5 %) ophthalmic ointment Apply 1cm ribbon in right eye up to 6x/ day x 10 days 12/13/2023 active albuterol HFA (PROAIR HFA ; PROVENTIL HFA ; VENTOLIN HFA) 90 mcg/actuation inhaler Inhale 2 Puffs into the lungs 4 times daily as needed for Wheezing or Shortness of Breath. 10/22/2023 active tmrkgmzbpx-bwwssyul-alzjb terol (Breztri Aerosphere) 160-9-4.8 mcg/actuation HFA aerosol inhaler inhaler Inhale 2 Puffs into the lungs 2 times daily. 10/22/2023 active pantoprazole (PROTONIX) 40 mg EC tablet Take 1 tablet (40 mg total) by mouth 2 (two) times a day. 10/22/2023 active diclofenac (VOLTAREN) 1 % topical gel Apply 1 g topically 3 (three) times a day. 10/01/2023 active hydrocortisone 1 % topical cream Apply twice daily to rectum as needed. 06/22/2023 active blood sugar diagnostic (FreeStyle Lite Strips) test strip Use to check BS daily 05/28/2023 active nitroglycerin (NITROSTAT) 0.[address] 1 tablet (0.4 mg total) under the tongue. every 5 minutes as needed for Chest pain. 05/03/2023 active estradioL (ESTRACE) 0.01 % (0.1 mg/gram) vaginal cream Insert 1 g into the vagina 2 (two) times a week. 02/17/2023 active aspirin 81 mg EC tablet Take 1 tablet (81 mg total) by mouth 1 (one) time each day. 08/04/2022 active montelukast (SINGULAIR) 10 mg tablet Take 1 tablet (10 mg total) by mouth at bedtime. 09/19/2020 active amLODIPine (NORVASC) 5 mg tablet Take 1 tablet (5 mg total) by mouth. active budesonide-formoteroL (SYMBICORT) 160-4.5 mcg/actuation inhaler Inhale 2 puffs by mouth. active Allergies Allergen Reaction Severity Comment Documented Date Source Status SERTRALINE HCL DIARRHEA 11/08/2023 [facility] ac tive DULOXETINE OTHER Other Reaction(s): Chest tightness, Numbness, tingling or swelling of the lips, tongue or mouth,Withdrawa l s/x since stopping duloxetine abruptly 06/18/2023 [facility] active SHRIMP 05/01/2021 [facility] active FLUOROURACIL ANAPHYLAXIS Patient mouth and tongue, and eyes swollen. 05/28/2020 [facility] active CEPHALEXIN OTHER Other reaction(s): GI intolerance 07/25/2019 [facility] active SULFACETAMIDE Rash/Dermatitis 07/06/2016 [facility] active MOXIFLOXACIN RASH Other reaction(s): Rash [facility] SHELLFISH CONTAINING PRODUCTS RASH [facility] SULFA (SULFONAMIDE ANTIBIOTICS) RASH Other reaction(s): Low blood pressure (disorder),Othe r reaction(s): Hives, Rash Other reaction(s): Low blood pressure (disorder) [facility] Problems Problem Status Onset Date Problem Type Date of Resolution Source Chest pain active 2005-04-11 ProblemAct [facility] Disease due to severe acute respiratory syndrome coronavirus 2 (SARS-CoV-2) active 2023-12-02 ProblemAct C [facility] Unspecified chronic gastritis with bleeding active 2018-03-08 ProblemAct [facility] Arthritis active 2018-10-18 ProblemAct [facility] Palpitations active 2021-10-15 ProblemAct [facility] CKD (chronic kidney disease) active 2021-05-08 ProblemAct [facility] Multiple lung nodules active 2020-05-17 ProblemAct [facility] Restrictive lung disease active 2020-08-22 ProblemAct [facility] Hypothyroidism active 2018-10-18 ProblemAct [facility] Obesity active 1996-03-29 ProblemAct [facility] Superior mesenteric artery stenosis active 2021-10-10 ProblemAct [facility] Headache active 2016-11-11 ProblemAct [facility] Multiple premature ventricular complexes active 2023-12-07 ProblemAct [facility] Other secondary pulmonary hypertension active 2020-06-25 ProblemAct [facility] Aortic calcification active 2021-05-08 ProblemAct [facility] Hypertension active 2018-10-18 ProblemAct [facility] Lumbago active 2024-05-09 ProblemAct [facility] Suprapubic pain active 2017-01-[address] [facility] Ptosis of right eyebrow active 2019-02-16 ProblemAct [facility] Prediabetes active 2021-05-08 ProblemAct [facility] Hyperlipidemia active 2021-10-15 ProblemAct [facility] Dysthymic disorder active 1979-03-29 ProblemAct [facility] Irritable bowel syndrome active 2018-10-18 ProblemAct [facility] 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 active 2020-07-18 ProblemAct [facility] Colon polyp active 2021-05-08 ProblemAct [facility] Snoring active 2020-05-17 ProblemAct [facility] SOB (shortness of breath) active 2021-10-10 ProblemAct [facility] Epigastric pain active 2016-11-[address] [facility] Moderate persistent asthma, uncomplicated active 2020-05-17 ProblemAct [facility] Other pulmonary embolism without acute cor pulmonale active 2020-06-25 ProblemAct [facility] Lumbar spondylosis active 2021-11-26 ProblemAct [facility] Depression active 2021-05-08 ProblemAct [facility] 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 ProblemAct [facility] COPD (chronic obstructive pulmonary disease) active 2021-05-08 ProblemAct [facility] Chronic fatigue active 2020-06-[address] [facility] Stage 3a chronic kidney disease active 2023-12-23 ProblemAct [facility] Thyroid nodule active 2018-02-21 ProblemAct [facility] Difficulty walking active 2020-07-18 ProblemAct [facility] GERD (gastroesophageal reflux disease) active 2021-05-08 ProblemAct [facility] Abdominal pain active 2018-10-18 ProblemAct [facility] Pure hypercholesterolemia active 2018-10-18 ProblemAct [facility] Vaginal foreign body active 2017-07-02 ProblemAct [facility] 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 active 2016-09-08 ProblemAct [facility] Right sided sciatica active 2017-06-05 ProblemAct [facility] Immunizations Vaccine Date Source Lot Number Status Influenza trivalent, 0.5mL ( Fluad) 65yo and older 11/30/2023 [facility] [id number] completed Tdap Tetanus diptheria acell ular pertussis (Boostrix; Adacel) 7yo and older 08/27/2023 [facility] [id number] completed Influenza trivalent, 0.5mL ( Fluad) 65yo and older 02/25/2023 [facility] [id number] completed Pneumococcal conjugate 20 va lent (Prevnar 20, PCV 20) 2mo and older 10/23/2022 [facility] [id number] comple levar Pneumococcal, Unspecified 10/23/2022 [facility] [id number] completed Influenza Quadravalent, 0.5m l (Fluzone High-dose) 65yo and older 02/13/2022 [facility] comple levar Influenza Quadravalent, 0.5m l (Fluad) 65yo and older 03/18/2021 [facility] completed Influenza trivalent, 0.5mL ( Fluzone High-dose) 65yo and older 01/04/2020 [facility] [id number] comple levar Influenza Split 03/15/2019 [facility] completed Influenza trivalent, with pr eservative (Fluzone; Afluria) 6mo and older 12/21/2017 [facility] [id number] completed Influenza trivalent, with pr eservative (Fluzone; Afluria) 6mo and older 01/10/2017 [facility] [id number] completed Zoster Live 06/09/2016 [facility] [id number] completed Influenza trivalent, with pr eservative (Fluzone; Afluria) 6mo and older 05/12/2016 [facility] [id number] completed Influenza, Unspecified 04/12/2015 [facility] [id number] co mpleted Pneumococcal polysaccharide 23 valent (Pneumovax 23) 2yo and older 03/08/2014 [facility] [id number] com pleted Influenza, Unspecified 12/31/2012 [facility]ELODIEFRNEG[facility] co mpleted Pneumococcal polysaccharide 23 valent (Pneumovax 23) 2yo and older 04/19/2012 [facility] com pleted Influenza trivalent, with pr eservative (Fluzone; Afluria) 6mo and older 04/14/2005 [facility] UNK completed Influenza Whole 03/01/2001 [facility] completed Influenza, Unspecified 02/03/2000 [facility] co mpleted Influenza, Unspecified 01/30/1999 [facility] co mpleted Td, Unspecified 08/27/1993 [facility] completed Care Team Organization Name Specialty Phone Email Start Date End Da leatha [facility]CO 11/15/2024
--- OUTSIDE RECORDS SUMMARY | 2025-02-19 13:51 | XMS_ITS ---
Author Organization Patient Business [facility] Address [address] [place] [address] Care Team Providers Care Social Media Manager Name Role Phone Theodore Newsome MD Primary Care Provider [phone] Coding Quality Analyst Care Management Status:Ongoing (Active) Start date:02/12/2025 Enrollment date:02/13/2025 Enrollment reason:Referred by Care Team Overview Referral from [place] to help pt find a therapist Case Team Name Relationship Phone Paulette JOSEPH(Responsible Staff) Care Man ager [phone] Continued Care and Services Coordination
--- OUTSIDE RECORDS SUMMARY | 2025-02-19 13:51 | XMS_ITS | Clinical Summary ---
Author Organization Patient Business Ser [facility] Address [address] [place] [address] Care Team Providers Care Needle Board Repairer Name Role Phone Theodore Newsome MD Primary Care Provider [phone] Allergies Active Allergy Reactions Criticality Noted Date [...] or Shortness of Breath. 10/22/19 24 Active hydrocortisone 1 % topical cream Apply [...] DAY 90 tablet 1 02/18/20 24 Active montelukast (SINGULAIR) 10 mg tablet Take 1 tablet (10 mg total) by mouth at bedtime. 90 tablet 1 11/02/19 25 Active metoprolol succinate (Toprol XL) 25 mg 24 hr tablet Take 1 tablet (25 mg total) by mouth 1 (one) time each day. Do not crush or chew. 90 each 1 11/02/19 25 2025 Active hydrOXYzine HCL (ATARAX) 10 mg tablet Take 1 tablet (10 mg total) by mouth every 8 (eight) hours if needed for anxiety. 90 tablet 1 12/16/19 25 Active Additional Information Patient not taking.Reported on 01/24/2025 pantoprazole (PROTONIX) 40 mg EC tablet Take 1 tablet (40 mg total) by mouth 2 (two) times a day. 180 tablet 1 12/26/19 25 Active aspirin 81 mg EC tablet Take 1 tablet (81 mg total) by mouth 1 (one) time each day. 30 tablet 11 01/03/20 25 2025 Active diclofenac (VOLTAREN) 1 % topical gelIndications: Chronic pain of right knee Apply 1 g topically 3 (three) times a day. 100 g 01/11/20 25 Active lisinopriL (PRINIVIL,ZESTR IL) 10 mg tabletIndicatio ns:Primary hypertension Take 1 tablet (10 mg total) by mouth 1 (one) time each day. 30 each 01/25/20 25 2025 Active buPROPion XL (WELLBUTRIN XL) 150 mg 24 hr tablet TAKE 1 TABLET BY MOUTH ONE TIME EACH DAY IN THE MORNING. DO NOT CRUSH, CHEW, OR SPLIT 30 tablet 4 02/07/20 Active lisinopriL (PRINIVIL,ZESTR IL) 5 mg tablet Take 1 tablet (5 mg total) by mouth 1 (one) time each day. 90 each 1 08/26/19 25 2024 Discontinued(D ose adjustment) buPROPion XL (WELLBUTRIN XL) 150 mg 24 hr tablet Take 1 tablet (150 mg total) by mouth 1 (one) time each day in the morning. Do not crush, chew, or split. 30 each 12/16/19 25 2024 Discontinued(D uplicate order) buPROPion SR (WELLBUTRIN SR) 150 mg 12 hr tablet Take by mouth 2 (two) times a day. Do not crush, chew, or split. 2024 Discontinued(D uplicate order) buPROPion XL (WELLBUTRIN XL) 150 mg 24 hr tablet Take 1 tablet (150 mg total) by mouth 1 (one) time each day. Do not crush, chew, or split. 2024 Discontinued Active Problems Problem Noted Date Diagnosed Date Moderate episode of recurren t major depressive disorder ([facility] V24, [facility] V28) 01/02/2025 Lumbago 05/09/2024 Stage 3a chronic kidney disease ([facility] V24, [facility] V28) 12/23/2023 Overview (12/23/2023): Per chart review [...] recommend treatment of the PVCs. Continue metoprolol. Lumbar spondylosis 11/26/2021 Overview (12/23/2023): Last Assessment & Plan: Patient describes chronic low back pain, states last year was her worst pain, states she could barely walk. She has been in physical therapy when she was down in [place] and currently is in physical therapy, feels [...] Patient had MRI lumbar spine 11/07/2021 at [facility] that showed mild multilevel degenerative changes, including [...] will update another lipid panel this year. Assessment & Plan (01/24/2025 2:31 PM EDT): She has been unable to tolerate statin therapy in the past in the setting of GI upset. Triglycerides elevated with her last fasting lipid profile in July. She will update a fasting lipid profile and I have given her a lab slip prior to her leaving our office today. She will continue to be mindful of her dietary fat intake and increase exercise. Orders: Lipid panel with reflex to direct LDL; Future Palpitations 10/15/2021 Overview (12/23/2023): Last Assessment & Plan: Patient continues to report palpitations which occur when she has her chest discomfort. ekg monitor in the past did not reveal any concerning findings. Her baseline EKG is showing sinus bradycardia with a heart rate of 53 bpm. She states that her palpitations are worse this year when compared to previous. We will update a 48-hour ekg monitor to assess for any significant cardiac arrhythmias. No changes to her medical therapies today. Assessment & Plan (01/24/2025 2:31 PM EDT): She will continue on her current dose of metoprolol. She acknowledges there is a stress component likely associated with this. EKG without any atrial or ventricular ectopy today. Sinus rhythm with a heart rate of 55 bpm. Superior mesenteric artery stenosis (CMS/HCC V24 ) 10/10/2021 Aortic calcification (CMS/HCC V24) 05/08/2021 Overview (12/23/2023): Xray at ER 2021 Last Assessment & Plan: Patient continues to follow with vascular. She has known abdominal aortic stenosis. 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 Continue with her medical therapies as prescribed. She will continue with lisinopril, metoprolol and amlodipine as outlined in detailed above. Assessment & Plan (01/24/2025 2:31 PM EDT): Elevated during today's exam. We will increase her lisinopril to 10 mg. I have sent this to her pharmacy of choice. I have asked her to have a BMP drawn in 1 week after increase. Educated on the importance of diet lifestyle to help further assist in reducing blood pressure. The patient was encouraged to follow low-salt low-fat diet, make purposeful strides towards weight loss, and engage in routine aerobic exercise as tolerated. Orders: lisinopriL (PRINIVIL,ZESTRIL) 10 mg tablet; Take 1 tablet (10 mg total) by mouth 1 (one) time each day. Basic metabolic panel; Future Assessment & Plan (05/23/2024 2:29 PM EST): Hypothyroidism 10/18/2018 Irritable bowel syndrome 10/18/2018 Thyroid nodule 02/21/2018 Suprapubic pain 01/09/2017 Chest pain 04/11/2005 Overview (12/23/2023): Last Assessment [...] her primary cardiology team. Assessment & Plan (01/24/2025 2:31 PM EDT): Likely noncardiac in nature. Testing as outlined above without any evidence of ischemia. Discomfort relieved with belching. Instructed to call 911 or go to the emergency room should the patient begin to experience chest pain or pressure lasting greater than 10 minutes does not resolve with rest. Orders: ECG 12 lead Lipid panel with reflex to direct LDL; Future Assessment & Plan (05/23/2024 2:29 PM EST): Obesity 03/29/1996 Resolved Problems Problem Noted Date Diagnosed Date Resolved Date Disease due to severe acute respiratory syndrome coronavirus 2 (SARS-CoV-2) 12/02/202309/2024 Overview (12/23/2023): Problem added by Discern Expert Other pulmonary embolism wit hout acute cor pulmonale ([facility] V24, [facility] V28) 06/25/202009/2024 Moderate persistent asthma, uncomplicated 05/17/2020 01/02/2025 Ptosis of right eyebrow 02/16/201909/2024 Abdominal pain 10/18/2018 01/02/2025 Unspecified chronic gastritis with bleeding 03/08/2018 01/02/2025 Overview (12/23/2023): 02/01/2017 An EGD was performed showing an irregular squamocolumnar junction mucosal changes of antral gastritis were noted. 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 09/08/2016 01/02/2025 Encounters Date Type Department Care Team Description 01/24/2025 1:10 PM EDT Office Visit [facility] - [facility] [address] [facility] [address] [place] [phone] Falguni Villarreal NP Chest pain, unspecified type (Primary Dx); Primary hypertension; Other hyperlipidemia; Palpitations 01/11/2025 [facility] [address] [place] [address] Ruby Mayo MA 01/10/2025 11:15 AM EDT Office Visit [facility]In [facility] - [address] [phone] Jean Ramirez NP Chronic pain of right knee (Primary Dx) 01/02/2025 9:00 AM EDT [facility] [phone] Theodroe Newsome MD Moderate episode of recurrent major depressive disorder ([facility] V24, [facility] V28) (Primary Dx); Other secondary pulmonary hypertension ([facility] V24, [facility] V28); Chronic obstructive pulmonary disease with emphysema, unspecified emphysema type ([facility]/HCC V24, CMS/HCC V28); Stage 3a chronic kidney disease ([facility]/HCC V24, CMS/HCC V28); Chronic bilateral low back pain with bilateral sciatica; Immunization due 01/02/2025 [facility] [phone] Jack Garcia PA 12/26/2024 1:52 PM EDT Anesthesia Event [facility] [address] [place] [phone] Parth Lindsey MD 12/26/2024 12:36 PM EDT - 12/26/2024 11:59 PM EDT Hospital Encounter [facility] [address] [place] [phone] Wei Akers MD Mounsey, Sarah, CRNA Internal hemorrhoids with complication Discharge Disposition: Home or Self Care 12/19/2024 Telephone Internal Medicine - [address] [phone] Theodore Newsome MD 12/18/2024 Telephone Internal Medicine - [address] [phone] Theodore Newsome MD 12/15/2024 3:00 PM EDT Office Visit Internal Medicine - [address] [phone] Jack Garcia PA Rectal bleeding (Primary Dx); Peripheral edema; Dysuria; Elevated brain natriuretic peptide (BNP) level; Dyspnea, unspecified type; Abnormal kidney function; Varicose veins of right lower extremity with pain 12/06/2024 Telephone Gastroenterology [facility] 175 [facility] [address] [phone] Bonnie Castillo MA 12/04/2024 8:50 AM EDT [facility] [address] [phone] Tressa Lazo PA Internal hemorrhoids with complication (Primary Dx); Lower abdominal pain 11/24/2024 Telephone Gastroenterology [facility] 175 [facility] [address] [phone] Tressa Lazo PA from Last 3 Months Immunizations Immunization Administration Dates Next Due Influenza Quadravalent, 0.5m l (Fluad) 65yo and older 03/18/2021 Influenza Quadravalent, 0.5m l (Fluzone High-dose) 65yo and older 02/13/2022 Influenza Split 03/15/2019 Influenza Whole 03/01/2001 Influenza trivalent, 0.5mL ( Fluad) 65yo and older 01/02/2025,11/30/2023,02/25/2023 Influenza trivalent, 0.5mL ( Fluzone High-dose) 65yo and older 01/04/2020 Influenza trivalent, with pr eservative (Fluzone; Afluria) 6mo and older 12/21/2017,01/10/2017,05/12/2016,04/14 Influenza, Unspecified 04/12/2015,2012,03/01/2001,02/02,01/30/1999 Pneumococcal conjugate 20 va lent (Prevnar 20, PCV 20) 2mo and older 10/23/2022 Pneumococcal polysaccharide 23 valent (Pneumovax 23) 2yo and older 03/08/2014,04/19/2012 Pneumococcal, Unspecified 10/23/2022 Td, Unspecified 08/27/1993 Tdap Tetanus diptheria acell ular pertussis (Boostrix; Adacel) 7yo and older 08/27/2023 Zoster Live 06/09/2016 Zoster recombinant (Shingrix ) 19yo and older 08/28/2024 Surgical History Surgery Date Site/Laterality Comments CHOLECYSTECTOMY 2014 PROCEDURE: LAPAROSCOPY, CHOLECYSTECTOMY OTHER SURGICAL HISTORY 2017 PROCEDURE: HISTORICAL SUBTOTAL THYROIDECTOMY OTHER SURGICAL HISTORY 1979 PROCEDURE: AK TOTAL ABDOMINAL HYSTERECT W/WO RMVL TUBE OVARY; [...] chronic, sta ge III (GFR 30-59 ml/min) ([facility] V24, [facility] V28) DX:Kidney disease, chronic, stage III (GFR 30-59 ml/min) ([facility]); COMMENT: Patient states is likely related to her chronic naproxen use, no longer takes NSAIDs Osteoporosis DX:Osteoporosis Multiple lung nodules 05/17/2020 DX:Multipl e lung nodules History of pulmonary embolus (PE) 05/08/2021 DX:History of pulmonary embolus (PE); COMMENT: In [place], took Elliquis for 3 months. Chronic gastritis with bleeding 03/08/2018 DX:Chronic gastritis with bleeding; COMMENT: 02/01/2017 An EGD was performed showing an irregular squamocolumnar junction mucosal changes of antral gastritis were noted. 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 Diabetes Mother Hypertension Mother Relation Name Status Comments Father Mother Alive Social History Tobacco Use Types Packs/Day Years Used Date Smoking Tobacco: Never Smokeless Tobacco: Never Tobacco Cessation:Counseling Given: Not Answered Alcohol Use Standard Drinks/Week Comments Never 0 (1 standard drink = 0.6 oz pur e alcohol) Housing Instability Answer Date Recorde d Are you worried that in the next 2 months you may not have stable housing? No 02/06/2025 Food Access & Nutrition Answer Date Rec orded Do you have access to a vari ety of food including fruits and vegetables? Yes 02/06/2025 Access to Healthcare Answer Date Record ed Within the last 3 months, ho w many times did you visit the emergency department for your medical care? 2 02/06/2025 Health Literacy Answer Date Recorded How often do you need to hav e someone help you when you read instructions, pamphlets, or other written material from your doctor or pharmacy? Never 02/06/2025 Caregiver: How often do you need to have someone help you when you read instructions, pamphlets, or other written material from your doctor or pharmacy? Not on file 02/06/2025 Financial Risk Answer Date Recorded How hard is it for you to pa y for the very basics like food, housing, medical care, and air conditioning / heating? Not very hard 02/06/2025 Transportation Answer Date Recorded Has the lack of transportati on kept you from meetings, work, or from getting things needed for daily living? No Has the lack of transportati on kept you from medical appointments or from getting medications? No 02/06/2025 Social Isolation Answer Date Recorded How often do you feel lonely or isolated from th ose around you? Never 02/06/2025 Food Risk Answer Date Recorded Within the past 12 months we worried whether our food would run out before we got money to buy more. Never true 02/06/2025 Within the past 12 months th e food we bought just didn't last and we didn't have money to get more. Never true 02/06/2025 Dependent Care Answer Date Recorded Do you need help finding or paying for care for your loved ones. For example, children's minister or elderly care for an older adult? No 02/06/2025 Education Answer Date Recorded Do you think completing more education or training, like finishing a GED, going to college, or learning a trade, would be helpful for you? N/A 02/06/2025 Employment and Income Answer Date Recor ded During the last four weeks, have you been actively looking for work? No 02/06/2025 Living Situation Answer Date Recorded What is your living situation? Unrecognized valu e 02/06/2025 Interpersonal Safety Answer Date Record ed Physical Abuse Unrecognized value 12/26/2024 Verbal Abuse Unrecognized value 12/26/2024 Comments No Sex and Gender Information Value Date Recorded Sex Assigned at Not on file Legal Sex Female 11:42 AM EST Gender Identity Female 02/09/2022 1:05 PM EST Sexual Orientation Straight 02/09/2022 1: 05 PM EST Obstetrics History Last Filed Vital Signs Vital Sign Reading Time Taken Comments Blood Pressure 142/90 01/24/2025 1:12 PM EDT Pulse 55 01/24/2025 1:12 PM EDT Temperature 36.2 C (97.1 F) 01/10/2025 10:59 AM EDT Respiratory Rate 18 12/26/2024 2:24 PM EDT Oxygen Saturation 98% 01/10/2025 10:59 AM EDT Inhaled Oxygen Concentration - - Weight 77.1 kg (170 lb) 01/24/2025 1:12 PM EDT Height 157.5 cm (5' 2 ) 01/24/2025 1:12 PM EDT Body Mass Index 31.09 01/24/2025 1:12 PM EDT Plan of Treatment Upcoming Encounters Date Type Department Care Team (Late st Contact Info) Description 03/19/2025 7:00 AM EST Ancillary Procedure [facility] - [facility] [address] [place] [phone] 04/03/2025 11:30 AM EST Office Visit Gastroenterology - [address] [facility] 299 [facility] [address] [place] [phone] Tressa Lazo PA 299 [facility] [address] [place] [address] 07/03/2025 11:00 AM EDT Office Visit Internal Medicine - [facility] [address] [place] [phone] Theodore Newsome MD [address] [place] [address] 10/18/2025 11:30 AM EDT Office Visit Vascular Surgery - [place] [address] [place] [phone] Azra West MD [address] [place] [phone] Health Maintenance Due Date Last Done Comments COVID-19 Vaccine (3 - Moderna risk series) 09/15/2021 08/18/2021, 02/26/2021 Hepatitis C Screening 02/09/2022 Medicare Annual Wellness Visit 02/09/2022 Osteoporosis Screening (Bone Density Screening) 02/09/2022 RSV Immunization Adult Patients (1 - 1-dose 75+ series) 09/13/2022 Zoster Vaccines (2 of 2) 10/23/2024 08/28/2024, 05/27 Hypertension/CHF/CAD Annual BMP Blood Test 12/15/2025 12/15/2024, 08/02/2024, 01/31/2024, Additional history exists Falls Risk Assessment 12/26/2025 12/26/2024, 024 Social Influencers of Health Screening 02/06/2026 02/06/2025 Cholesterol Screening (Lipid Panel) 08/02/2029 08/02/2024, 03/27/2024, 08/07/2022 DTaP,Tdap,and Td Vaccines (3 - Td or Tdap) 08/26/2033 08/27/2023, 08/27/1993 Pneumococcal Vaccine: 50+ Years Completed 10/23/2022, 10/23/2022, 03/08/2014, Additional history exists Influenza Vaccine Completed 01/02/2025, , 02/25/2023, Additional history exists Depression Screening Completed 02/13/2025, 10/27/19 24 HIB Vaccines Aged Out No longer eligi [...] on patient's age to complete this topic Goals Goal Patient Goal Type Associated Problems Recent Progress Patient-Stated? Author Pt to contact [facility] to inquire about secondary insurance change General Yes Gardenia Frausto RN Procedures Procedure Name Priority Date/Time Associated Diagnosis Comments ECG 12-LEAD Routine 01/24/2025 2:31 PM EDT Chest pain, unspecified type FLEXIBLE SIGMOIDOSCOPY Routine 12/26/2024 2:03 PM EDT Internal hemorrhoids with complication ARGUELLES URINE CULTURE TUBE Routine 12/15/2024 3:53 PM EDT Dysuria URINALYSIS WITH REFLEX MICROSCOPIC AND CULTURE Routine 12/15/2024 3:53 PM EDT Dysuria URINALYSIS WITH REFLEX MICROSCOPIC AND CULTURE Routine 12/15/2024 3:53 PM EDT Dysuria B-TYPE NATRIURETIC PEPTIDE Routine 12/15/2024 3:53 PM EDT Peripheral edema Dysuria Elevated brain natriuretic peptide (BNP) level BASIC METABOLIC PANEL Routine 12/15/2024 3:53 PM EDT Abnormal kidney function CULTURE URINE Routine 12/15/2024 3:[address] ABDOMEN PELVIS WO AND W CONTRAST Routine 12/06/2024 8:25 AM EDT ENDOSCOPY, SMALL BOWEL Routine 12/06/2024 8:21 AM EDT LIPID PANEL WITH REFLEX TO DIRECT LDL Routine 08/02/2024 1:45 PM EDT Hyperlipidemia DEPRESSION SCREENING Routine 10/27/2023 FALLS RISK ASSESSMENT Routine 10/27/2023 from Last 3 Months or Most Recently Relevant to Health Maintenance Results * ECG 12 lead (01/24/2025 2:31 PM EDT) Ventricular Rate ECG 55 BPM GEMUSE Atrial Rate 55 BPM GEMUSE P-R Interval 138 ms GEMUSE QRS Duration 74 ms GEMUSE Q-T Interval 412 ms GEMUSE QTc 394 ms GEMUSE P Wave [place] 56 degrees GEMUSE R [place] 44 degrees GEMUSE T [place] 89 degrees GEMUSE ECG Interpretation Sinus bradycardia Right atrial enlargement When compared with ECG of 23-MAY-2024 13:48, No significant change was found Confirmed by ERIKA BECERRA ([id number]) on 02/12/2025 2:10:04 AM GEMUSE 01/24/2025 1:19 PM EDT 02/12/2025 2:10 AM EST Falguni Villarreal INTAKE MANAGER ECG ORDERABLES Edited Result - Final GEMUSE * FLEXIBLE SIGMOIDOSCOPY Anesthesia - MAC; [facility] END[facility]COPY (12/26/2024 2:03 PM EDT) Anatomical Region Laterality Modality Other 12/26/2024 1:35 PM EDT Impressions 12/26/2024 2:07 PM EDT - Preparation of the colon was fair. - Internal hemorrhoids. - Diverticulosis in the sigmoid colon. - No specimens collected. Recommendation: - Use fiber, for example Citrucel, Fibercon, Konsyl or Metamucil. Narrative 12/26/2024 2:07 PM EDT [facility] Patient Name: Sydnie Brar Procedure Date: 12/26/2024 1:35 PM Date of : 1945 Age: 79 Gender: Female Note Status: Finalized Attending MD: Wei Akers MD, Procedure Date No Time: 12/26/2024 Procedure: Flexible Sigmoidoscopy Indications: Anal hemorrhage Providers: Wei Akers MD Referring MD: Wei Akers MD Medicines: Propofol per Anesthesia Complications: No immediate complications. Estimated Blood Loss: Estimated blood loss: none. Procedure: Pre-Anesthesia Assessment: - ASA Grade Assessment: II - A patient with mild systemic disease. After obtaining informed consent, the endoscope was passed under direct vision. Throughout the procedure, the patient's blood pressure, pulse, and oxygen saturations were monitored continuously. The Colonoscope was introduced through the anus and advanced to the sigmoid colon. The flexible sigmoidoscopy was accomplished without difficulty. The patient tolerated the procedure well. The quality of the bowel preparation was fair. Findings: Internal hemorrhoids were found during endoscopy. The hemorrhoids were Grade I (internal hemorrhoids that do not prolapse). A few diverticula were found in the sigmoid colon. Procedure Code(s): --- Professional --- 99785, Sigmoidoscopy, flexible; diagnostic, including collection of specimen(s) by brushing or washing, when performed (separate procedure) Diagnosis Code(s): --- Professional --- K64.0, First degree hemorrhoids K62.5, Hemorrhage of anus and rectum K57.30, Diverticulosis of large intestine without perforation or abscess without bleeding CPT copyright 2020 [employer]. All rights reserved. The codes documented in this report are preliminary and upon constitutional law professor review may be revised to meet current compliance requirements. Wei Akers MD 12/26/2024 2:07:08 PM This report has been signed electronically.Wei Akers MD Number of Addenda: 0 Note Initiated On: 12/26/2024 1:35 PM Scope In: Scope Out: Endoscopy Department at [facility] - [address] [place] [phone] Procedure Note Wei Akers MD - 12/26/2024 [facility] Patient Name: Sydnie Brar Procedure Date: 12/26/2024 1:35 PM Date of : 1945 Age: 79 Gender: Female Note Status: Finalized Attending MD: Wei Akers MD, Procedure Date No Time: 12/26/2024 Procedure: Flexible Sigmoidoscopy Indications: Anal hemorrhage Providers: Wei Akers MD Referring MD: Wei Akers MD Medicines: Propofol per Anesthesia Complications: No immediate complications. Estimated Blood Loss: Estimated blood loss: none. Procedure: Pre-Anesthesia Assessment: - ASA Grade Assessment: II - A patient with mild systemic disease. After obtaining informed consent, the endoscope was passed under direct vision. Throughout theprocedure, the patient's blood pressure, pulse, and oxygen saturations were monitored continuously. The Colonoscope was introduced through the anus and advanced to the sigmoid colon. The flexible sigmoidoscopy was accomplished without difficulty.The patient tolerated the procedure well. The qualityof the bowel preparation was fair. Findings: Internal hemorrhoids were found during endoscopy.The hemorrhoids were Grade I (internal hemorrhoids thatdo not prolapse). A few diverticula were found in the sigmoidcolon. Procedure Code(s): --- Professional --- 85433, Sigmoidoscopy, flexible; diagnostic,including collection of specimen(s) by brushing or washing,when performed (separate procedure) Diagnosis Code(s): --- Professional --- K64.0, First degree hemorrhoids K62.5, Hemorrhage of anus and rectum K57.30, Diverticulosis of large intestine without perforation or abscess without bleeding CPT copyright 2020 [employer]. All rights reserved. The codes documented in this report are preliminary and upon constitutional law professor reviewmay be revised to meet current compliance requirements. Wei Akers MD 12/26/2024 2:07:08 PM This report has been signed electronically.Wei Akers MD Number of Addenda: 0 Note Initiated On: 12/26/2024 1:35 PM Scope In: Scope Out: Endoscopy Department at [facility] - [address] [place] [phone] IMPRESSION: - Preparation of the colon was fair. - Internal hemorrhoids. - Diverticulosis in the sigmoid colon. - No specimens collected. Recommendation: - Use fiber, for example Citrucel, Fibercon, Konsylor Metamucil. Wei Akers MD GI~PROCEDURE ORDERABLES Final Re sult * (ABNORMAL) Urinalysis with reflex microscopic and culture (12/15/2024 3:53 PM EDT) Specific [place] Urine 1.007 1.003 - 1.030 LAB URINALYSIS - AUTOMATED METHOD 12/15/2024 7:07 PM EDT [facility] pH, Urine 6.5 5.0 - 8.0 pH LAB URINALYSIS - AUTOMATED METHOD 12/15/2024 7:07 PM EDT [facility] Leukocytes, Urine Small(A) Negative LAB URINALYSIS - AUTOMATED METHOD 12/15/2024 7:07 PM [facility] Nitrite, Urine Negative Negative LAB URINALYSIS - AUTOMATED METHOD 12/15/2024 7:07 PM [facility] Protein, Urine Negative <=Trace mg/dL LAB URINALYSIS - AUTOMATED METHOD 12/15/2024 7:07 PM [facility] Glucose, Urine Negative Negative mg/dL LAB URINALYSIS - AUTOMATED METHOD 12/15/2024 7:07 PM [facility] Ketones, Urine Negative Negative mg/dL LAB URINALYSIS - AUTOMATED METHOD 12/15/2024 7:07 PM [facility] Urobilinogen, Urine 0.2 0.2 - 1.0 mg/dL LAB URINALYSIS - AUTOMATED METHOD 12/15/2024 7:07 PM [facility] Bilirubin, Urine Negative Negative LAB URINALYSIS - AUTOMATED METHOD 12/15/2024 7:07 PM [facility] Blood, Urine Negative Negative LAB URINALYSIS - AUTOMATED METHOD 12/15/2024 7:07 PM [facility] RBC, Urine 0.7 0 - 4 /HPF LAB URINALYSIS - AUTOMATED METHOD 12/15/2024 7:07 PM [facility] WBC, Urine 3.5 0 - 4 /HPF LAB URINALYSIS - AUTOMATED METHOD 12/15/2024 7:07 PM [facility] Squamous Epithelial, Urine 13 0 - 60 /LPF LAB URINALYSIS - AUTOMATED METHOD 12/15/2024 7:07 PM [facility] Bacteria, Urine Negative Negative /HPF LAB URINALYSIS - AUTOMATED METHOD 12/15/2024 7:07 PM [facility] Hyaline Casts, Urine 0.4 0 - 3 /LPF LAB URINALYSIS - AUTOMATED METHOD 12/15/2024 7:07 PM [facility] Urine Urine specimen obtained by clean catch procedure / Unknown Non-blood Collection / Unknown 12/15/2024 3:53 PM EDT 12/15/2024 3:53 PM EDT us Jack RICCI LAB URINE ORDERABLES Fi nal Result [facility] [address] [place] [address], [place] [phone] * Arguelles urine culture tube (12/15/2024 3:53 PM EDT) Extra Tube Hold for add-ons. 12/15/2024 9:01 PM EDT [facility] Comment:Auto resulted. Urine Urine specimen obtained by clean catch procedure / Unknown Non-blood Collection / Unknown 12/15/2024 3:53 PM EDT 12/15/2024 3:53 PM EDT Jack RICCI LAB URINE ORDERABLES Fi nal Result Performing Organization Address [facility] Co de Phone Number [facility] [address] [place] [address], [place] [phone] * (ABNORMAL) Culture urine (12/15/2024 3:53 PM EDT) Culture, Urine 10,000-49,000 CFU/mL Streptococcus beta-hemolytic Group B(A) 12/17/2024 1:45 PM EDT [facility] Comment: Susceptibility testing is not routinely performed for Beta Streptococcus isolates since these organisms are predictably sensitive to Penicillin. If the Patient is not responding, is allergic to Penicillin, or further therapeutic information is requir ed, please consult an Infectious Disease Specialist. The organism value for this result has been updated. These results have been appended to the previously preliminary verified report. Urine Urine specimen obtained by clean catch procedure / Unknown Non-blood Collection / Unknown 12/15/2024 3:53 PM EDT 12/15/2024 7:07 PM EDT us Jack RICCI LAB MICROBIOLOGY - GENE RAL ORDERABLES Final Result Performing Organization Address [facility] Co de Phone Number [facility] [address] [place] [address], [place] [phone] * (ABNORMAL) B-type natriuretic peptide (12/15/2024 3:53 PM EDT) Pathologist [facility] BNP 164(H) <=100 pcg/mL LAB CHEMISTRY METHOD 12/15/2024 7:11 PM [facility] Blood Venous blood specimen / Unknown Venipuncture / Unknown 12/15/2024 3:53 PM EDT 12/15/2024 3:53 PM EDT us Jack RICCI LAB BLOOD ORDERABLES Fi nal Result [facility] [address] [place] [address], [place] [phone] * (ABNORMAL) Basic metabolic panel (12/15/2024 3:53 PM EDT) [facility] Sodium 139 133 - 145 mmol/L LAB CHEMISTRY METHOD 12/15/2024 7:00 PM [facility] Potassium 4.5 3.5 - 5.5 mmol/L LAB CHEMISTRY METHOD 12/15/2024 7:00 PM [facility] Chloride 104 96 - 110 mmol/L LAB CHEMISTRY METHOD 12/15/2024 7:00 PM [facility] CO2 28 21 - 32 mmol/L LAB CHEMISTRY METHOD 12/15/2024 7:00 PM [facility] Anion Gap 7 3 - 11 LAB CHEMISTRY METHOD 12/15/2024 7:00 PM [facility] Glucose 127(H) 70 - 100 mg/dL LAB CHEMISTRY METHOD 12/15/2024 7:00 PM [facility] BUN 21 5 - 25 mg/dL LAB CHEMISTRY METHOD 12/15/2024 7:00 PM [facility] Creatinine 1.11(H) 0.50 - 1.10 mg/dL LAB CHEMISTRY METHOD 12/15/2024 7:00 PM [facility] eGFR 51(L) >=60 mL/min/1. 73m2 LAB CHEMISTRY METHOD 12/15/2024 7:00 PM EDT [facility] Comment:Calculation based on the Chronic Kidney Disease Epidemiology Collaboration (CKD-EPI) equation refit without adjustment for race. BUN/Creatinine Ratio 18.9 LAB CHEMISTRY METHOD 12/15/2024 7:00 PM EDT [facility] Calcium 8.9 8.5 - 10.5 mg/dL LAB CHEMISTRY METHOD 12/15/2024 7:00 PM EDT [facility] Blood Venous blood specimen / Unknown Venipuncture / Unknown 12/15/2024 3:53 PM EDT 12/15/2024 3:53 PM EDT Jack RICCI LAB BLOOD ORDERABLES Fi nal Result [facility] [address] [place] [address], * CT Abdomen Pelvis wo and w Contrast (12/06/2024 8:25 AM EDT) Anatomical Region Laterality Modality Body Computed Tomogra phy Historical Provider IMG CT PROCEDURES Final R esult * Endoscopy, small bowel with ileum (12/06/2024 8:21 AM EDT) Anatomical Region Laterality Modality Endoscopy Historical Provider GI~PROCEDURE ORDERABLES F inal Result * (ABNORMAL) Lipid panel with reflex to direct LDL (08/02/2024 1:45 PM EDT) Cholesterol 181 0 - 200 mg/dL LAB CHEMISTRY METHOD 08/02/2024 4:48 PM EDT [facility] Triglycerides 304(H) 0 - 150 mg/dL LAB CHEMISTRY METHOD 08/02/2024 4:48 PM EDT [facility] HDL 54 >=40 mg/dL LAB CHEMISTRY METHOD 08/02/2024 4:48 PM EDT [facility] LDL Calculated 66 0 - 100 mg/dL LAB CHEMISTRY METHOD 08/02/2024 4:48 PM EDT [facility] VLDL Cholesterol Royer 60.8 mg/dL LAB CHEMISTRY METHOD 08/02/2024 4:48 PM EDT [facility] Non HDL Chol. (LDL+VLDL) 127 <145 mg/dL LAB CHEMISTRY METHOD 08/02/2024 4:48 PM EDT [facility] Chol/HDL Ratio 3.4 0.0 - 4.4 LAB CHEMISTRY METHOD 08/02/2024 4:48 PM EDT [facility] Blood Venous blood specimen / Unknown Venipuncture / Unknown 08/02/2024 1:45 PM EDT 08/02/2024 1:46 PM EDT Maria E Jeffries INTAKE MANAGER LAB BLOOD ORDERABLES Final R esult [facility] [address] [place] [address], * Falls Risk Assessment (10/27/2023) 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
[2025-02-19 15:49] LABS: Anion Gap 14 (12-20); Blood Urea Nitrogen 21 mg/dL (9-16); Carbon Dioxide 27 mmol/L (22-29); Chloride 109 mmol/L (96-108); Estimated Glomerular Filt Rate 39; Potassium 5.0 mmol/L (3.3-5.1); Sodium 145 mmol/L (135-145)
== END 2025-02-19 10:53 | disposition home or self-care (01) ==
LOC: HO.HKASLDS 10:52
PROVIDERS: PCP Internal Medicine; Visit Provider Internal Medicine Nephrology
DX: I12.9 Hypertensive chronic kidney disease with stage 1 through stage 4 chronic kidney disease, or unspecified chronic kidney disease (principal); N18.31 Chronic kidney disease, stage 3a
CPT/HCPCS: 36415; 80051; 82565; 84520

== ENCOUNTER 2025-02-20 10:20 | Outpatient (AMB) | payer MEDICARE, OTHER, SELFPAY ==
--- NOTE | 2025-02-20 10:57 | HO.NEPHOV_ITS ---
Vital Signs 02/20/25 10:59 Height 5 ft 1 in Weight 169 lb BMI 31.9 BP 132/80 Blood Pressure Location Lt brachial Position Sitting Pulse 57 Pulse Source Pulse Oximeter Pulse Oximetry (%) 98 Oxygen Delivery Method Room Air Intake Visit Reasons: 6mon follow-up w/labs-Conf Channeler Required: No Accompanied by: Self / Same As Patient Allergies cephalexin Allergy (Verified 02/20/25 10:59) Unknown fluorouracil Allergy (Verified 02/20/25 10:59) Unknown lisinopril Allergy (Verified 02/20/25 10:59) Unknown moxifloxacin Allergy (Verified 02/20/25 10:59) Unknown shellfish derived Allergy (Verified 02/20/25 10:59) Unknown Sulfa (Sulfonamide Antibiotics) Allergy (Verified 02/20/25 10:59) Unknown sulfacetamide Allergy (Verified 02/20/25 10:59) Unknown HPI Comments Details: I had the pleasure of seeing Irmaerate in F/U of CKD. 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 She has a longstanding hypertension and had been on lisinopril in the past which has been discontinued when she had some dizziness while taking the medication. She is currently on amlodipine which is keeping her blood pressure at goal. She has history of renal calculi. She is also taking hydrochlorothiazide for edema which is helping to keep her blood pressure at goal. She has not had any renal calculi ever since she has been on hydrochlorothiazide. She has history of A1c going up to 7 which had improved to upper 6. She feels tired. She denies chest pain, shortness of breath, nausea, vomiting, diarrhea, paroxysmal nocturnal dyspnea, orthopnea, dysuria, microscopic hematuria, sensorineural deafness. She has history of aortic aneurysm and follows up with Dr. Doe in [facility]. She does not take nonsteroidal anti-inflammatories. [facility] Medical History (Updated 06/27/24 @ 22:35 by Karl Blanco MD) Hypercholesterolemia Hypertension Hypothyroidism Other secondary pulmonary hypertension Surgical History History of cataract surgery H/O partial thyroidectomy Hx of cholecystectomy H/O: hysterectomy Family History Mother Diabetes Hypertension Heart disease Social History Alcohol intake: never Patient Tobacco Use Status: Never used Tobacco Review of Systems Const All systems reviewed & are unremarkable except as noted in HPI and below Physical Exam Vital Signs: Last Vital Signs Pulse 57 02/20/25 10:59 BP 132/80 02/20/25 10:59 Pulse Ox 98 02/20/25 10:59 Oxygen Delivery Method Room Air 02/20/25 10:59 BMI result Body Mass Index 31.9 Const General: comfortable and no acute distress Orientation/consciousness: patient oriented x3 HEENT Head: Yes normocephalic Mouth: Normal oral and palatal mucosa present Eyes EOM: EOMs intact bilaterally Neck Neck: Yes supple Resp Auscultation: clear to auscultation bilaterally Cardio Jugular venous distension: no JVD Rate: regular rate GI Palpation (GI): Soft to palpation Auscultation: normal bowel sounds General: Yes no CVA tenderness Back/Spine/Pelvis Back: no CVA tenderness Skin General skin exam: no rashes or lesions noted Neuro General: patient oriented x3 and moves all extremities Extrem General: Yes no pedal edema Results Reviewed Nephrology Results: Sodium, (135-145) 145 mmol/L 02/19/25 Potassium, (3.3-5.1) 5.0 mmol/L 02/19/25 Chloride, (96-108) 109 mmol/L H 02/19/25 Carbon Dioxide, (22-29) 27 mmol/L 02/19/25 BUN, (9-16) 21 mg/dL H 02/19/25 Creatinine, (0.5-1.4) 1.33 mg/dL 02/19/25 Calcium, (8.4-10.2) 9.5 mg/dL 06/27/24 Phosphorus, (2.7-4.5) 3.6 mg/dL 06/27/24 PTH Intact, (8.7-77.1) 63.1 pg/mL 06/27/24 Urine Creatinine 260.51 mg/dL 06/27/24 Protein/Creatinin Ratio, (<0.2) 0.09 06/27/24 Renal US 07/28/24 Assessment & Plan Assessment & Plan (1) CKD stage 3a, GFR 45-59 ml/min: Code(s): N18.31 - Chronic kidney disease, stage 3a Category: Medical (2) Hypertension: Code(s): I10 - Essential (primary) hypertension Category: Medical Qualifiers: Hypertension type: unspecified Qualified Code(s): I10 - Essential (primary) hypertension Plan 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 She has history of aortic aneurysm. She has had issues with CANDIDO inhibitor. She has no renal calculi ever since she has been on hydrochlorothiazide. She has H/O edema from amlodipine. Her renal functions are currently stable. Her blood work, urine studies were reviewed. Renal USS is normal . She is on low-dose CANDIDO inhibitor and is off calcium channel anni. She should maintain good hydration and avoid nonsteroidal anti-inflammatories. All these have been explained in detail. Answered all questions. Follow-up appointment given Orders: Orders Electrolytes 6 Months I10 - Essential (primary) hypertension, N18.31 - Chronic kidney disease, stage 3a Blood Urea Nitrogen 6 Months I10 - Essential (primary) hypertension, N18.31 - Chronic kidney disease, stage 3a Calcium 6 Months I10 - Essential (primary) hypertension, N18.31 - Chronic kidney disease, stage 3a Creatinine 6 Months I10 - Essential (primary) hypertension, N18.31 - Chronic kidney disease, stage 3a Coding Level of Care Code Est Pt Level 4 (88117) Diagnoses CKD stage 3a, GFR 45-59 ml/min N18.31 Hypertension, unspecified type I10 Hypertension type: unspecified
[2025-02-20 10:59] VITALS: BP 132/80; PULSE 57; O2SAT 98; BMI 31.9
== END 2025-02-20 11:11 | disposition home or self-care (01) ==
LOC: HO.HKAS 10:20
PROVIDERS: PCP Internal Medicine Hematology & Oncology; Visit Provider Internal Medicine Nephrology
DX: N18.31 Chronic kidney disease, stage 3a (principal); I10 Essential (primary) hypertension
CPT/HCPCS: 99214

== ENCOUNTER → 2025-02-20 10:20 | Outpatient (BNVA) | payer MEDICARE, OTHER, SELFPAY | PROVIDERS: PCP Internal Medicine Hematology & Oncology; Visit Provider Internal Medicine Nephrology | DX: N18.31 Chronic kidney disease, stage 3a (principal); I12.9 Hypertensive chronic kidney disease with stage 1 through stage 4 chronic kidney disease, or unspecified chronic kidney disease | CPT/HCPCS: 99212 ==